=== PATIENT | male | born 1990 | race Caucasian/White ===

== ENCOUNTER 2017-04-27 19:10 | Emergency (ER) | payer MEDICAID ==
[~2017-04-27] VITALS: Ht 170.2 cm; Wt 54.4 kg
[2017-04-27 21:20] VITALS: BP 142/86
[2017-04-27] MEDS ORDERED: cefTRIAXone SOD 1,000 MG VL IM ONE (21:30)
[2017-04-27] MEDS ORDERED: methylPREDNISolone SOD SUCC 125 MG/2 ML VL IM ONE (21:30)
== END 2017-04-27 22:21 | disposition home or self-care (01) ==
LOC: ER 19:15
DX: L03.213 Periorbital cellulitis (principal); F17.210 Nicotine dependence, cigarettes, uncomplicated; F12.90 Cannabis use, unspecified, uncomplicated

== ENCOUNTER 2017-10-03 19:14 | Emergency (ER) | payer MEDICAID ==
[~2017-10-03] VITALS: Ht 177.8 cm; Wt 54.4 kg
[2017-10-03] MEDS ORDERED: NEOMYCIN-BACITRACIN-POLYM UNITDOSE PKG TOP OINT TOP ONE (20:00)
[2017-10-03] MEDS ORDERED: SODIUM CHLORIDE 0.9% 1,000 ML IV ONE (20:00)
[2017-10-03] MEDS ORDERED: ONDANSETRON HCL 4 MG/2 ML VIAL IV ONE (20:00)
[2017-10-03] MEDS ORDERED: MORPHINE SULFATE 4 MG/ML SYR/VIAL IV ONE (20:00)
[2017-10-03 22:40] VITALS: BP 136/77
== END 2017-10-03 22:21 | disposition home or self-care (01) ==
LOC: ER 19:19
DX: T20.26XA Burn of second degree of forehead and cheek, initial encounter (principal); T23.292A Burn of second degree of multiple sites of left wrist and hand, initial encounter; T23.291A Burn of second degree of multiple sites of right wrist and hand, initial encounter; F17.210 Nicotine dependence, cigarettes, uncomplicated; F12.10 Cannabis abuse, uncomplicated; F14.10 Cocaine abuse, uncomplicated; X08.8XXA Exposure to other specified smoke, fire and flames, initial encounter; Y93.89 Activity, other specified; Y92.89 Other specified places as the place of occurrence of the external cause; Y99.8 Other external cause status
CPT/HCPCS: 16020; 71045; 96361; 96374; 96375; 99284; J2270; J2405; J7030

== ENCOUNTER 2019-12-02 08:50 | Emergency (ER) | payer MEDICAID ==
[~2019-12-02] VITALS: Ht 172.7 cm; Wt 54.4 kg
[2019-12-02 08:56] VITALS: BP 146/100
[2019-12-02] MEDS ORDERED: FLUORESCEIN SOD 1 MG TEST STRIP EACHEYE ONE (09:15)
[2019-12-02] MEDS ORDERED: TETRACAINE HCL 0.5% OPTH(EYE) SOLN 4ML EACHEYE ONE (09:15)
== END 2019-12-02 09:55 | disposition home or self-care (01) ==
LOC: ER 08:50
DX: H16.133 Photokeratitis, bilateral (principal); F17.210 Nicotine dependence, cigarettes, uncomplicated

== ENCOUNTER 2022-04-22 04:49 | Emergency (ER) | payer MEDICAID ==
[~2022-04-22] VITALS: Ht 172.7 cm; Wt 55.6 kg
[2022-04-22 05:33] VITALS: BP 184/114
[2022-04-22] MEDS ORDERED: TETRACAINE HCL 0.5% OPTH(EYE) SOLN 4ML EACHEYE ONE (05:45)
== END 2022-04-22 07:09 | disposition left against medical advice (07) ==
LOC: ER 04:49
DX: H57.13 Ocular pain, bilateral (principal); H57.89 Other specified disorders of eye and adnexa; Z53.21 Procedure and treatment not carried out due to patient leaving prior to being seen by health care provider

== ENCOUNTER 2022-05-23 07:07 | Emergency (ER) | payer MEDICAID ==
[~2022-05-23] VITALS: Ht 172.7 cm; Wt 54.0 kg
[2022-05-23] MEDS ORDERED: LIDOCAINE 1% (LOCAL ANESTH.) PF 5ml SDV ID ONE (07:15)
[2022-05-23] MEDS ORDERED: TETANUS-DIPTH-ACEL PERTUSSIS 0.5ML SYR Tdap IM ONE (07:15)
[2022-05-23] MEDS ORDERED: ceFAZolin 1GM/50ML 50 ML IV ONE (07:15)
[2022-05-23] MEDS ORDERED: ACETAMINOPHEN 325 MG TAB PO ONE (07:15)
[2022-05-23 08:10] VITALS: BP 138/93
[2022-05-23 08:10] LABS: Basophils # (auto) 0 10 ^3/uL (0-0.2); Basophils % (auto) 0.2 % (0.0-2.0); Eosinophils # (auto) 0 10 ^3/uL (0-0.8); Hematocrit 37.1 % (41.0-53.0); Hemoglobin 13.1 g/dL (13.5-17.5); Lymphocytes # (auto) 0.6 10 ^3/uL (0.4-5.4); Lymphocytes % (auto) 4.7 % (10.0-50.0); Mean Corpuscular Hemoglobin 32.2 pg (28.0-32.0); Mean Corpuscular Hgb Conc. 35.3 g/dL (32.0-36.0); Mean Corpuscular Volume 91.2 fL (80.0-100.0); Monocytes # (auto) 0.7 10 ^3/uL (0-1.3); Neutrophils # (auto) 12.4 10 ^3/uL (1.6-8.6); Neutrophils % (auto) 90.1 % (37.0-80.0); Red Blood Cells 4.07 10^6/uL (4.5-5.90); Red Cell Distribution Width 12.8 % (11.8-14.3); White Blood Cell 13.7 10^3/uL (4.4-10.8)
[2022-05-23 08:25] LABS: Calcium 8.2 mg/dL (8.5-10.1); Potassium 4.7 mmol/L (3.5-5.1)
[2022-05-23 08:29] LABS: BUN/Creatinine Ratio 13.1; Bilirubin, Total 0.8 mg/dL (0.2-1.0); Partial Thromboplastin Time 24.4 sec (24.6-33.4); Total Protein 7.2 g/dL (6.4-8.2)
== END 2022-05-23 07:57 | disposition short-term general hospital (02) ==
LOC: ER 07:07
DX: S06.300A Unspecified focal traumatic brain injury without loss of consciousness, initial encounter (principal); F17.210 Nicotine dependence, cigarettes, uncomplicated; F12.10 Cannabis abuse, uncomplicated; F14.10 Cocaine abuse, uncomplicated; W22.8XXA Striking against or struck by other objects, initial encounter; Y93.89 Activity, other specified; Y92.89 Other specified places as the place of occurrence of the external cause; Y99.8 Other external cause status
CPT/HCPCS: 36415; 70450; 72125; 80053; 85025; 85610; 85730; 90471; 90715; 96365; 96368; 99285; J0690; J1953; J7060

== ENCOUNTER → 2022-06-08 | Emergency (ER) | payer MEDICAID ==
[~2022-06-08] VITALS: Ht 172.7 cm; Wt 79.5 kg
[2022-06-08 10:58] VITALS: BP 123/89
== END | disposition left against medical advice (07) ==
LOC: EDUNIT# 10:56 → EDBD 10:56 → ER 10:56
DX: T40.411A Poisoning by fentanyl or fentanyl analogs, accidental (unintentional), initial encounter (principal); Z53.21 Procedure and treatment not carried out due to patient leaving prior to being seen by health care provider; Y92.89 Other specified places as the place of occurrence of the external cause

== ENCOUNTER 2023-03-30 18:20 | Emergency (ER) | payer MEDICAID ==
[~2023-03-30] VITALS: Ht 172.7 cm; Wt 54.5 kg
[2023-03-30 18:29] VITALS: BP 117/86; PULSE 86; RESP 18; TEMP 98.3; O2SAT 98
== END 2023-03-30 22:40 | disposition home or self-care (01) ==
LOC: ER 18:20 → EEVIPCON 18:20 → ER 22:40
DX: S22.32XA Fracture of one rib, left side, initial encounter for closed fracture (principal); S01.01XA Laceration without foreign body of scalp, initial encounter; S05.12XA Contusion of eyeball and orbital tissues, left eye, initial encounter; F17.210 Nicotine dependence, cigarettes, uncomplicated; Y04.2XXA Assault by strike against or bumped into by another person, initial encounter; Y93.89 Activity, other specified; Y92.89 Other specified places as the place of occurrence of the external cause; Y99.8 Other external cause status
CPT/HCPCS: 70450; 70486; 71101

== ENCOUNTER 2023-06-14 13:39 | Emergency (ER) | payer MEDICAID, OTHER ==
[~2023-06-14] VITALS: Ht 170.2 cm; Wt 63.6 kg
[2023-06-14 13:59] VITALS: PULSE 68; RESP 16; O2SAT 98
[2023-06-14 16:16] LABS: Basophils # (auto) 0.1 10 ^3/uL (0-0.2); Basophils % (auto) 0.6 % (0.0-2.0); Eosinophils # (auto) 0.1 10 ^3/uL (0-0.8); Eosinophils % (auto) 0.5 % (0.0-7.0); Hematocrit 41.2 % (41.0-53.0); Hemoglobin 14.3 g/dL (13.5-17.5); Lymphocytes # (auto) 1.2 10 ^3/uL (0.4-5.4); Lymphocytes % (auto) 11.1 % (10.0-50.0); Mean Corpuscular Hemoglobin 31.9 pg (28.0-32.0); Mean Corpuscular Hgb Conc. 34.8 g/dL (32.0-36.0); Mean Corpuscular Volume 91.7 fL (80.0-100.0); Monocytes # (auto) 0.6 10 ^3/uL (0-1.3); Monocytes % (auto) 5.6 % (0.0-12.0); Neutrophils # (auto) 8.8 10 ^3/uL (1.6-8.6); Neutrophils % (auto) 82.2 % (37.0-80.0); Red Blood Cells 4.49 10^6/uL (4.5-5.90); Red Cell Distribution Width 14.8 % (11.8-14.3); White Blood Cell 10.7 10^3/uL (4.4-10.8)
[2023-06-14 16:49] LABS: Creatine Kinase IFCC 173 U/L (46-171)
[2023-06-14 16:53] LABS: Alanine Aminotransferase 20 U/L (7-40); Alkaline Phosphatase 75 U/L (46-116); Anion Gap 7 (5-15); Aspartate Aminotransferase 27 U/L (13-40); Bilirubin, Total 0.7 mg/dL (0.2-1.0); Blood Urea Nitrogen 11 mg/dL (9-23); Calcium 9.6 mg/dL (8.5-10.1); Carbon Dioxide 26 mmol/L (20-30); Chloride 108 mmol/L (98-107); Glucose 88 mg/dL (74-106); Potassium 4.1 mmol/L (3.5-5.1); Sodium 141 mmol/L (136-145); Total Protein 7.8 g/dL (5.7-8.2)
[2023-06-14 17:50] VITALS: BP 147/111; PULSE 66; RESP 16; TEMP 97.8; O2SAT 98
== END 2023-06-14 17:58 ==
LOC: ER 13:39 → EDUNIT# 13:39 → ER 17:58
DX: S09.8XXA Other specified injuries of head, initial encounter (principal); F17.210 Nicotine dependence, cigarettes, uncomplicated; W51.XXXA Accidental striking against or bumped into by another person, initial encounter; Y93.89 Activity, other specified; Y92.89 Other specified places as the place of occurrence of the external cause; Y99.8 Other external cause status
CPT/HCPCS: 36415; 70450; 80053; 82550; 84484; 85025

== ENCOUNTER 2024-11-18 14:06 | Inpatient (IN) | payer MEDICAID ==
[2024-11-18] VITALS (21 sets, daily range): BP systolic 114–162; BP diastolic 88–115; PULSE 15–89; RESP 7–20; TEMP 97–99.1; O2SAT 63–100
[~2024-11-18] VITALS: Ht 170.2 cm; Wt 68.8 kg
[2024-11-18] MEDS: ETOMIDATE (2MG/ML) 20ML VIAL IV ONE (14:07)
[2024-11-18] MEDS: SUCCINYLCHOLINE CHLORIDE 20 MG/ML 10ML VIAL IV ONE (14:08)
[2024-11-18] MEDS: MIDAZOLAM DRIP 50 mg/50mL 50 ML IV ONE (14:16)
[2024-11-18] MEDS: MIDAZOLAM DRIP 50 mg/50mL 50 ML IV SCH (14:20)
--- NOTE | 2024-11-18 14:39 | ED.PDOC ---
Altered Mental Status HPI Comments 34-year-old male who comes in with chief complaint of altered mental status after multiple seizures. According to the family, they found the patient face down in the garage. 911 was called and the patient was transported to our facility. When the paramedics arrived, the patient was actually in the house and being held by the family members. We believe that the patient does have a history of seizures. Upon arrival, the patient was barely gasping for air and so the decision was made to intubate the patient immediately. The patient did have an IV Hep-Lock in place on the left upper extremity. It was unknown about the rest of the patient's medical history. According to the paramedics there were some open cans by the patient. Chief Complaint: Seizure Time Seen by MD: 14:09 Primary Care Provider: Unknown Reviewed Notes: Nurses Notes, Director Geophysical Laboratory Notes, Medications, Allergies (No allergies to medications) Allergies: Coded Allergies: NO KNOWN ALLERGIES (Unverified , 06/14/14) Information Source: Emergency Med Personnel Mode of Arrival: EMS Severity: Severe, Unresponsive Timing: Hours Duration: Since onset Prehospital treatment: 12 Lead EKG, Accucheck (157 was the Accu-Chek), Station Engineer Main Line, Other (The patient was on a non-rebreather of oxygen) Quality: Decreased Alertness Recent: None History of: Seizure (Possible history of seizures) Associated Signs and Symptoms: None Past Medical History PAST MEDICAL HISTORY: Seizures Surgical History: Denies all surgeries Family History Family History: Unobtainable Social History Smoker: Cigarettes, Greater Than 1 Pack/Day Alcohol: Occasionally Drugs: Unknown Lives In: Home Unable to Obtain due to: Altered Mental Status, Other (The patient possibly had a seizure) Physical Exam General Appearance: Severe Distress HEENT: Pale Conjuntivae (L), Pale Conjuntivae (R), Pharynx Normal, TMs Normal Neck: Full Range of Motion, Non-Tender, Normal, Normal Inspection Respiratory: Accessory Muscle Use, Chest Non-Tender, Respiratory Distress, Rhonchi Cardiovascular: No Edema, No JVD, No Murmur, No Gallop, Normal Peripheral Pulses, Regular Rate/Rhythm Breast Exam: Deferred Gastrointestinal: No Organomegaly, Non Tender, No Pulsatile Mass, Normal Bowel Sounds, Soft Genitalia: Deferred Pelvic: Deferred Rectal: Deferred Extremities: No calf tenderness, Normal capillary refill, No pedal edema, Other (The patient has an IV Hep-Lock in the left upper extremity) Musculoskeletal : Apperance: Normal 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: Attending Physician Indication: Hypotension, CVP monitoring Room prepared for procedure: Yes Supervisor Fireworks Assembly performed hand hygien: Yes Maximal sterile barrier precau: Mask/Eye shield, Sterile gown, Cap, Sterlie gloves, Large sterlie drape Skin Preparation: Chlorhexidine gluconate Skin preparation completely dr: Yes Insertion site: Right, Infraclavicular Central line catheter type: [id number] dialysis Number of lumens: 3 Central line exchanged over a: No Antiseptic ointment applied to: Yes Post Assessment: Chest X-Ray, Proper placement, No Pneumothorax Informed consent obtained: No Risks/benefits/alt described: No Intubation Indication: Respiratory Insufficiency, Altered Mental Status Prep: Preoxygenation Pretreated with: Sedation (Etomidate 20 mg IV push) Medicated with: Succinylcholine (80 mg IV push) Intubation Approach: Orotracheal (8.0) Intubation size: cm (8.0) Informed consent obtained: No Risks/benefits/alt described: No Differential Diagnosis (ALOC) Differential Diagnosis: Dehydration, DKA, Seizure, CVA, Drug Overdose, ETOH Intoxication X-Ray, Labs, Meds, VS Vital Signs Date Time Temp Pulse Resp B/P (MAP) Pulse Ox O2 Delivery O2 Flow Rate FiO2 11/18/24 14:29 89 11/18/24 14:09 112 12 101/69 (80) 92 Lab Test 11/18/24 14:56 11/18/24 14:35 11/18/24 14:22 Range/Units POC Glucose 184 H 70-106 mg/dl White Blood Count 6.2 4.4-10.8 10^3/uL Red Blood Count 4.24 L 4.5-5.90 10^6/uL Hemoglobin 14.4 13.5-17.5 g/dL Hematocrit 42.4 41.0-53.0 % Mean Corpuscular Volume 99.9 80.0-100.0 fL Mean Corpuscular Hemoglobin 33.9 H 28.0-32.0 pg Mean Corpuscular Hemoglobin Concent 34.0 32.0-36.0 g/dL Red Cell Distribution Width 13.5 11.8-14.3 % Platelet Count 135 L 140-450 10^3/uL Mean Platelet Volume 9.6 6.9-10.8 fL Neutrophils (%) (Auto) 55.9 37.0-80.0 % Lymphocytes (%) (Auto) 35.2 10.0-50.0 % Monocytes (%) (Auto) 5.6 0.0-12.0 % Eosinophils (%) (Auto) 1.9 0.0-7.0 % Basophils (%) (Auto) 1.4 0.0-2.0 % Neutrophils # (Auto) 3.5 1.6-8.6 10 ^3/uL Lymphocytes # (Auto) 2.2 0.4-5.4 10 ^3/uL Monocytes # (Auto) 0.3 0-1.3 10 ^3/uL Eosinophils # (Auto) 0.1 0-0.8 10 ^3/uL Basophils # (Auto) 0.1 0-0.2 10 ^3/uL Nucleated Red Blood Cells 0.1 % Sodium Level 140 136-145 mmol/L Potassium Level 3.6 3.5-5.1 mmol/L Chloride Level 105 98-107 mmol/L Carbon Dioxide Level 18 L 20-31 mmol/L Anion Gap 17 H 5-15 Blood Urea Nitrogen 8 L 9-23 mg/dL Creatinine 1.41 H 0.700-1.30 mg/dL Glomerular Filtration Rate Calc 67 >90 mL/min BUN/Creatinine Ratio 5.7 L 10.0-20.0 Serum Glucose 192 H 74-106 mg/dL Calcium Level 9.0 8.7-10.4 mg/dL Total Bilirubin 0.6 0.2-1.0 mg/dL Aspartate Amino Transferase (AST) 44 H 13-40 U/L Alanine Aminotransferase (ALT) 81 H 7-40 U/L Alkaline Phosphatase 48 46-116 U/L Total Protein 7.3 5.7-8.2 g/dL Albumin 4.6 3.2-4.8 g/dL Plasma/Serum Blood Alcohol 3.1 <10 mg/dL Urine Color Colorless Yellow Urine Clarity Clear Clear Urine pH 7.0 5.0-9.0 Urine Specific [place] 1.008 1.001-1.035 Urine Protein Trace H Negative Urine Ketones Negative Negative Urine Blood Negative Negative /uL Urine Nitrite Negative Negative Urine Bilirubin Negative Negative Urine Urobilinogen Normal Negative mg/dL Urine Leukocyte Esterase Negative Negative /uL Urine RBC 1 0 - 3 /hpf Urine Microscopic WBC 1 0-3 /HPF Urine Squamous Epithelial Cells Few <5 /hpf Urine Bacteria None seen None Seen /hpf Urine Hyaline Casts Few 0 - 2 /lpf Urine Glucose Normal Normal mg/dL Urine Opiates Screen Neg NEGATIVE Urine Fentanyl Screen Neg NEGATIVE Urine Barbiturates Screen Neg NEGATIVE Urine Phencyclidine Screen Neg NEGATIVE Urine Amphetamines Screen Neg NEGATIVE Urine Benzodiazepines Screen Neg NEGATIVE Urine Cocaine Screen Neg NEGATIVE Urine Cannabinoids Screen Pos NEGATIVE The patient's CBC is within normal limits. The Accu-Chek was 183 The urine tox is positive for marijuana but otherwise negative The urine test is negative for any infection The alcohol level is 3.1 And did have multiple seizures so we are concerned about status epilepticus. An ABG has been ordered. The chest x-ray initially done showed no sign of any abnormalities The repeat chest x-ray now shows the endotracheal tube in place as well as the central line in place and no sign of any pneumothorax Critical Care was done for this patient is secondary to bedside management as well as interpretation of labs and imaging A pulmonary consult will be obtained. A neurology consult will most likely be obtained. The patient was given Keppra 1 g IV piggyback The patient tolerated the central line placement without any difficulty The patient initially was being sedated with a Versed but because of the patient's increased movement we did have to add propofol. We are going to continue to manage the patient's blood pressure as to being on both Versed and propofol The patient will be admitted to the ICU Images Reviewed?: Images reviewed and evaluated by me Time of 1ST Reevaluation: 14:39 Reevaluation 1ST: Unchanged Patient Education/Counseling: Pt Unresponsive Family Education/Counseling: No Family Present Departure 1 Departure Time of Disposition: 15:34 Impression: Primary Impression: Status epilepticus Additional Impressions: Acute respiratory failure Qualified Codes: J96.01 - Acute respiratory failure with hypoxia Marijuana use Disposition: 09 ADMITTED INPATIENT Admit to: ICU Condition: Critical Critical Care Note Critical Care Time?: Yes (55 min-critical care time only) Stability Stability form required: Yes Unstable for transfer: ICU, CCU, PCU, BISHNU (Intensive VS monitoring), ED Physician Assesment (Clinical assesment) Heart Score Heart Score: Heart Score Response (Comments) Value History N/A 0 EKG N/A 0 Age N/A 0 Risk Factors N/A 0 Troponin N/A 0 Total 0 RENE PLEITEZ MD Nov 18, 2024 14:39
[2024-11-18 14:40] LABS: Urine Bacteria None Seen /hpf (None Seen)
--- NOTE | 2024-11-18 14:47 | DVH ---
CHEST RADIOGRAPH Indication: POST INTUBATION Technique: Single frontal view of the chest was obtained COMPARISON: None FINDINGS: Lines and Tubes: Endotracheal tube and enteric catheter in satisfactory position Lungs: Clear Pleura: No effusion. No pneumothorax. Cardiomediastinal contours: Unremarkable Bones: Unremarkable IMPRESSION: Endotracheal tube and enteric catheter in satisfactory position
[2024-11-18 14:55] LABS: Basophils # (auto) 0.1 10 ^3/uL (0-0.2); Basophils % (auto) 1.4 % (0.0-2.0); Eosinophils # (auto) 0.1 10 ^3/uL (0-0.8); Eosinophils % (auto) 1.9 % (0.0-7.0); Hematocrit 42.4 % (41.0-53.0); Hemoglobin 14.4 g/dL (13.5-17.5); Lymphocytes # (auto) 2.2 10 ^3/uL (0.4-5.4); Lymphocytes % (auto) 35.2 % (10.0-50.0); Mean Corpuscular Hemoglobin 33.9 pg (28.0-32.0); Mean Corpuscular Volume 99.9 fL (80.0-100.0); Monocytes # (auto) 0.3 10 ^3/uL (0-1.3); Monocytes % (auto) 5.6 % (0.0-12.0); Neutrophils # (auto) 3.5 10 ^3/uL (1.6-8.6); Neutrophils % (auto) 55.9 % (37.0-80.0); Nucleated Red Blood Cells % 0.1 %; Platelet Count (auto) 135 10^3/uL (140-450); Red Blood Cells 4.24 10^6/uL (4.5-5.90); Red Cell Distribution Width 13.5 % (11.8-14.3); White Blood Cell 6.2 10^3/uL (4.4-10.8)
[2024-11-18 15:04] LABS: Urine Blood Negative /uL (Negative); Urine Clarity Clear (Clear); Urine Color Colorless (Yellow); Urine Hyaline Cast FEW /lpf (0 - 2); Urine Protein, UAD TRACE (Negative); Urine Specific Gravity 1.008 (1.001-1.035); Urine Squamous Epithelial Cell FEW /hpf (<5); Urine Urobilinogen Normal (Negative); Urine WBC 1 /HPF (0-3)
[2024-11-18 15:10] LABS: Benzodiazephine Screen, Urine Neg (NEGATIVE)
[2024-11-18 15:11] LABS: Albumin 4.6 g/dL (3.2-4.8); Alkaline Phosphatase 48 U/L (46-116); Anion Gap 17 (5-15); BUN/Creatinine Ratio 5.7 (10.0-20.0); Blood Alcohol 3.1 mg/dL (<10); Chloride 105 mmol/L (98-107); Potassium 3.6 mmol/L (3.5-5.1); Sodium 140 mmol/L (136-145); Total Protein 7.3 g/dL (5.7-8.2)
[2024-11-18 15:11] LABS: Amphetamine Screen, Urine Neg (NEGATIVE); Barbiturate Scree,Urine Neg (NEGATIVE); Cannabinoid Screen, Urine Pos (NEGATIVE); Cocaine Screen, Urine Neg (NEGATIVE); Opiate Scree,Urine Neg (NEGATIVE); Phencyclidine Screen, Urine Neg (NEGATIVE)
[2024-11-18 15:12] LABS: Alanine Aminotransferase 81 U/L (7-40); Aspartate Aminotransferase 44 U/L (13-40); Bilirubin, Total 0.6 mg/dL (0.2-1.0); Blood Urea Nitrogen 8 mg/dL (9-23); Carbon Dioxide 18 mmol/L (20-31); Glucose 192 mg/dL (74-106)
--- NOTE | 2024-11-18 15:21 | DVH ---
EXAM: CT HEAD WITHOUT CONTRAST INDICATION: aloc TECHNIQUE: CT of the head without intravenous contrast. Radiation Dose Information: CT Dose: CTDI volume is 61.31 mGy. Dose-length product is 1208.16 mGy*cm The dose indicators for CT are the volume Computed Tomography (CT) Dose Index (CTDIvol) and the Dose Length Product (DLP), and are measured in units of mGy and mGy-cm, respectively. These indicators are not patient dose, but values generated from the CT scanner acquisition factors. The report includes radiation exposure data for exposures received during this examination. COMPARISON: CT HEAD WITHOUT CONTRAST on DOS: 03/30/23, HEAD WITHOUT CONTRAST on DOS: 05/23/22 FINDINGS: There is no evidence of acute intracranial hemorrhage, extra-axial collection, mass effect, midline s hift, herniation or hydrocephalus. The ventricles, sulci and cisterns are age appropriate. The wise-white differentiation is intact. Patchy periventricular and subcortical white matter hypoattenuation is nonspecific but may be related to small vessel ischemic disease. The visualized paranasal sinuses and mastoid air cells are clear. Right frontal craniotomy. IMPRESSION: No acute intracranial abnormality.
[2024-11-18] MEDS: PROPOFOL 100 ML IV ONE (15:28)
[2024-11-18] MEDS: PROPOFOL 100 ML IV SCH (15:30)
[2024-11-18] MEDS: SODIUM CHLORIDE 0.9% 500 ML IVB ONE (15:31)
[2024-11-18] MEDS: levETIRAcetam 1000 mg/100ml 100 ML IV ONE (15:31)
--- NOTE | 2024-11-18 15:47 | DVH ---
CHEST RADIOGRAPH Indication: s/p central line placement. Technique: Single frontal view of the chest was obtained COMPARISON: XY CHEST XRAY 1 VIEW on DOS: 11/18/24 FINDINGS: Lines and Tubes: Endotracheal tube and enteric catheter in satisfactory position. Right central veno us catheter in satisfactory position. Lungs: Clear Pleura: No effusion. No pneumothorax. Cardiomediastinal contours: Unremarkable Bones: Unremarkable IMPRESSION: No acute disease.
[2024-11-18 16:13] LABS: Base Excess -2.3 mmol/L (-2.0-3.0)
[2024-11-18] MEDS ORDERED: RISP3TAB44 PO (16:57)
[2024-11-18] MEDS ORDERED: LEVE750T3 PO (16:57)
[2024-11-18] MEDS ORDERED: NITROGLYCERIN 0.4 MG SL TAB SL PRN (17:00)
[2024-11-18] MEDS ORDERED: MORPHINE SULFATE INJ 2 MG/ml SYRG IV PRN (17:00)
[2024-11-18] MEDS ORDERED: ACETAMINOPHEN 325 MG TAB PO PRN (17:00)
[2024-11-18] MEDS ORDERED: ONDANSETRON HCL 4 MG/2 ML VIAL IV PRN (17:00)
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
[2024-11-18] MEDS: SODIUM CHLORIDE 0.9% 1,000 ML IV SCH (17:30)
[2024-11-18] MEDS: SODIUM CHLORIDE 0.9% 1,000 ML IV ONE (17:30)
--- NOTE | 2024-11-18 20:25 | DVHINCON2 ---
Date of service: Nov 18, 2024 Referring Physician Rafael Reason for Consultation 11/18/24 Altered Mental Status HPI Comments 34-year-old male who comes in with chief complaint of altered mental status after multiple seizures. According to the family, they found the patient face down in the garage. 911 was called and the patient was transported to our facility. When the paramedics arrived, the patient was actually in the house and being held by the family members. We believe that the patient does have a history of seizures. Upon arrival, the patient was barely gasping for air and so the decision was made to intubate the patient immediately. The patient did have an IV Hep-Lock in place on the left upper extremity. It was unknown about the rest of the patient's medical history. According to the paramedics there were some open cans by the patient. Chief Complaint: Seizure Urinalysis, 11/18/2024: Unremarkable UDS, 11/18/2024: Cannabinoids Plasma alcohol, 11/18/2024: <3 WBC/HB/PLT/MCV 11/18/24: 6.2/14.4/135/99.9 HCO3, 11/18/2024: 18 Anion gap, 11/18/2024: 17 BUN/CR, 11/18/2024: 8/1.41 HGB A1c, 11/18/24: 4.7 TBI/AST/ALT/AP, 11/18/2024: 0.6/44/81/48 Chest x-ray, 11/18/2024: No acute disease CT head, 11/18/2024: No acute intracranial abnormality Seizures Craniotomy Unobtainable Smoker: Cigarettes, Greater Than 1 Pack/Day Alcohol: Occasionally Drugs: Unknown Lives In: Home History of Present Illness Mr. Laws is a 34 years old right-handed gentleman with a history of traumatic brain injury, schizophrenia, he was brought to the [facility] on 11/17/2024 with a chief company of seizure activity. At this time, he is intubated, nonresponsive to strong painful stimuli, the history is obtained from his mother, I have also talked to his nurse and reviewed the chart He was history of seizure disorder and traumatic brain injury, that will be further described On 11/17/2024, the patient was had multiple episodic event in the role in that he was shaking all over the body, with eyes round back, company nonresponsive, the even lasts for about 1 minute, and followed by another one without recovered mental status One day in 04/2022, the patient was found unresponsiveness with a hammer on his head, the patient recovered after craniotomy, and he reports to the family that he hammertoes his head himself. Coincidentally after this event, the patient was started have seizure disorder, and the events happened on 11/17/2024 were typical to his seizure activity One day in 12/2022, he shot he was evaluated head, and he recovered after brain surgery. He had a good recovery from both brain injury, with normal mentation and memory But he was seizure activity once or twice every [address] Sita Horton, a local neurologist, he was on Keppra 1500 mg b.i.d. Urinalysis, 11/18/2024: Unremarkable UDS, 11/18/2024: Cannabinoids Plasma alcohol, 11/18/2024: <3 WBC/HB/PLT/MCV 11/18/24: 6.2/14.4/135/99.9 HCO3, 11/18/2024: 18 Anion gap, 11/18/2024: 17 BUN/CR, 11/18/2024: 8/1.41 HGB A1c, 11/18/24: 4.7 TBI/AST/ALT/AP, 11/18/2024: 0.6/44/81/48 Chest x-ray, 11/18/2024: No acute disease CT head, 11/18/2024: No acute intracranial abnormality Past Medical History Seizures, schizophrenia Past Surgical History Craniotomy Family History No major medical problems Social History He smokes, but no history of alcohol or recreational substance use Allergies: Coded Allergies: NO KNOWN ALLERGIES (Unverified , 06/14/14) Home Meds Reported Medications Risperidone (Risperidone) 3 Mg Tab, 1 TAB PO DAILY 11/18/24 Levetiracetam (Levetiracetam) 750 Mg Tab, 2 TAB PO BID 11/18/24 Current Medications Current Medications Medications (Trade) Dose Ordered Sig/Milton Route PRN Reason Start Time Stop Time Status Last Admin Midazolam HCl 50 ml @ 1 mls/hr Q24H IV 11/18/24 14:20 11/18/24 14:20 Propofol 100 ml @ 2.52 mls/hr Q24H IV 11/18/24 15:45 11/18/24 15:30 Ondansetron HCl (Zofran) 4 mg Q4HP PRN IV NAUSEA / VOMITING 11/18/24 17:00 Acetaminophen (Tylenol Tablet) 650 mg Q6HP PRN PO PAIN SCALE 1-3 OR TEMP>100.4 11/18/24 17:00 Nitroglycerin (Ntrostat Sublingual) 0.4 mg Q5MINP PRN SL FOR CHEST PAIN 11/18/24 17:00 Morphine Sulfate 2 mg Q30M PRN IV FOR CHEST PAIN 11/18/24 17:00 Levetiracetam 100 ml @ 400 mls/hr BID IV 11/18/24 22:00 Risperidone (RisperDAL TABLET) 3 mg DAILY PO 11/19/24 10:00 Sodium Chloride 1,000 ml @ 125 mls/hr Q8H IV 11/18/24 17:30 11/18/24 17:30 Review of Systems As above, the other systems are negative Vital Signs Vital Signs Date Time Temp Pulse Resp B/P (MAP) Pulse Ox O2 Delivery O2 Flow Rate FiO2 11/18/24 19:48 99.1 63 14 161/114 (130) 98 99.1 11/18/24 18:00 40 11/18/24 14:25 Mechanical Ventilator+ Physical Exam The patient is well-nourished and well-developed with no distress. The patient is intubated HEENT: Status post craniotomy c, neck supple, no carotid bruits Lungs: Clear to auscultation Cardiovascular: Regular rate and region, S1, S2, no murmurs Abdomen: Soft, nontender, normal bowel sounds MENTAL STATUS: Not responsive to the surroundings, CRANIAL NERVES: Pupils are equal, round and reactive.There are corneal reflexes and doll's eyes phenomenon. No signs of facial weakness. There are gagging or coughing reflexes SENSATION: No responses to pain stimuli. MOTOR: Normal tone in the upper and lower extremity. Normal muscle bulk. No fasciculations. No spontaneous movement. REFLEXES: Deep tendon reflexes are symmetrical. No pathological reflexes. CEREBELLAR/COORDINATION: Deferred GAIT/STATION: deferred. Labs/Diagnostic Data Labs Test 11/18/24 16:07 11/18/24 14:56 11/18/24 14:35 11/18/24 14:22 Range/Units Blood Gas Specimen Type Arterial Blood Gas Sample Site Right radial Blood Gas Patient Temperature 37.0 Arterial Blood Date Drawn [id number] Arterial Blood pH 7.396 7.350-7.450 Arterial Blood Partial Pressure CO2 36.8 35.0-48.0 mmHg Arterial Blood Partial Pressure O2 202.3 H 83.0-108.0 mmHg Arterial Blood HCO3 22.1 21.0-28.0 mmol/L Arterial Blood Oxygen Saturation 99.1 H 94.0-98.0 % Arterial Blood Base Excess -2.3 L -2.0-3.0 mmol/L Arterial Blood Oxyhemoglobin 97.9 94.0-98.0 % Arterial Blood Carboxyhemoglobin 0.7 0.5-1.5 % Arterial Blood Methemoglobin 0.5 0.0-1.5 % Rigoberto Test Modified Blood Gas Total Hemoglobin 14.30 13.5-17.5 g/dL Blood Gas Set Respiration Rate 14.0 Blood Gas Modality Vent - ac FiO2 % 100.0 Blood Gas Tidal Volume 500.0 Blood Gas PEEP or CPAP 8.0 POC Glucose 184 H 70-106 mg/dl White Blood Count 6.2 4.4-10.8 10^3/uL Red Blood Count 4.24 L 4.5-5.90 10^6/uL Hemoglobin 14.4 13.5-17.5 g/dL Hematocrit 42.4 41.0-53.0 % Mean Corpuscular Volume 99.9 80.0-100.0 fL Mean Corpuscular Hemoglobin 33.9 H 28.0-32.0 pg Mean Corpuscular Hemoglobin Concent 34.0 32.0-36.0 g/dL Red Cell Distribution Width 13.5 11.8-14.3 % Platelet Count 135 L 140-450 10^3/uL Mean Platelet Volume 9.6 6.9-10.8 fL Neutrophils (%) (Auto) 55.9 37.0-80.0 % Lymphocytes (%) (Auto) 35.2 10.0-50.0 % Monocytes (%) (Auto) 5.6 0.0-12.0 % Eosinophils (%) (Auto) 1.9 0.0-7.0 % Basophils (%) (Auto) 1.4 0.0-2.0 % Neutrophils # (Auto) 3.5 1.6-8.6 10 ^3/uL Lymphocytes # (Auto) 2.2 0.4-5.4 10 ^3/uL Monocytes # (Auto) 0.3 0-1.3 10 ^3/uL Eosinophils # (Auto) 0.1 0-0.8 10 ^3/uL Basophils # (Auto) 0.1 0-0.2 10 ^3/uL Nucleated Red Blood Cells 0.1 % Sodium Level 140 136-145 mmol/L Potassium Level 3.6 3.5-5.1 mmol/L Chloride Level 105 98-107 mmol/L Carbon Dioxide Level 18 L 20-31 mmol/L Anion Gap 17 H 5-15 Blood Urea Nitrogen 8 L 9-23 mg/dL Creatinine 1.41 H 0.700-1.30 mg/dL Glomerular Filtration Rate Calc 67 >90 mL/min BUN/Creatinine Ratio 5.7 L 10.0-20.0 Serum Glucose 192 H 74-106 mg/dL Hemoglobin A1c 4.7 <5.7 % A1C Calcium Level 9.0 8.7-10.4 mg/dL Total Bilirubin 0.6 0.2-1.0 mg/dL Aspartate Amino Transferase (AST) 44 H 13-40 U/L Alanine Aminotransferase (ALT) 81 H 7-40 U/L Alkaline Phosphatase 48 46-116 U/L Total Protein 7.3 5.7-8.2 g/dL Albumin 4.6 3.2-4.8 g/dL Plasma/Serum Blood Alcohol 3.1 <10 mg/dL Urine Color Colorless Yellow Urine Clarity Clear Clear Urine pH 7.0 5.0-9.0 Urine Specific [place] 1.008 1.001-1.035 Urine Protein Trace H Negative Urine Ketones Negative Negative Urine Blood Negative Negative /uL Urine Nitrite Negative Negative Urine Bilirubin Negative Negative Urine Urobilinogen Normal Negative mg/dL Urine Leukocyte Esterase Negative Negative /uL Urine RBC 1 0 - 3 /hpf Urine Microscopic WBC 1 0-3 /HPF Urine Squamous Epithelial Cells Few <5 /hpf Urine Bacteria None seen None Seen /hpf Urine Hyaline Casts Few 0 - 2 /lpf Urine Glucose Normal Normal mg/dL Urine Opiates Screen Neg NEGATIVE Urine Fentanyl Screen Neg NEGATIVE Urine Barbiturates Screen Neg NEGATIVE Urine Phencyclidine Screen Neg NEGATIVE Urine Amphetamines Screen Neg NEGATIVE Urine Benzodiazepines Screen Neg NEGATIVE Urine Cocaine Screen Neg NEGATIVE Urine Cannabinoids Screen Pos NEGATIVE Assessment Status epileptics Grand mal seizure Chronic traumatic brain injury Acute respiratory failure Plan/Recommendation Close monitoring Supportive treatment EEG ICU care Stabilize Vital Respiratory support/vent management Keppra 1500 mg IV b.i.d. Ativan for seizure breakthrough DVT prophylaxis/Lovenox More recommendation per clinical course Progress: Poor This medical document was created using an electronic medical record system with [employer] dictation system. Although this document has been carefully reviewed, there may still be some phonetic and typographical errors. These areas are purely typographical due to imperfections of the software programs, and do not reflect any compromise in the patient's medical care. Plan discussed with: Other ANTELMO MONTANA MD Nov 18, 2024 20:25
[2024-11-18] MEDS ORDERED: LORazepam 2MG/ML-1ML VIAL IV PRN (22:00)
[2024-11-18] MEDS: ENOXAPARIN SOD 40 MG/0.4 ML SYRINGE SC ONE (22:27)
[2024-11-18] MEDS: levETIRAcetam 1500 mg/100ml 100 ML IV SCH (22:28)
[2024-11-19] VITALS (114 sets, daily range): BP systolic 75–154; BP diastolic 39–109; PULSE 41–83; RESP 12–18; TEMP 96.3–99.5; O2SAT 91–100
[2024-11-19 05:13] LABS: Basophils # (auto) 0.1 10 ^3/uL (0-0.2); Basophils % (auto) 0.9 % (0.0-2.0); Eosinophils # (auto) 0.1 10 ^3/uL (0-0.8); Hemoglobin 13.6 g/dL (13.5-17.5); Platelet Count (auto) 137 10^3/uL (140-450)
[2024-11-19 05:17] LABS: Eosinophils % (auto) 1.4 % (0.0-7.0); Hematocrit 38.4 % (41.0-53.0); Lymphocytes # (auto) 2.3 10 ^3/uL (0.4-5.4); Lymphocytes % (auto) 26.5 % (10.0-50.0); Mean Corpuscular Hemoglobin 34.2 pg (28.0-32.0); Mean Corpuscular Hgb Conc. 35.5 g/dL (32.0-36.0); Mean Corpuscular Volume 96.5 fL (80.0-100.0); Monocytes # (auto) 0.6 10 ^3/uL (0-1.3); Monocytes % (auto) 6.6 % (0.0-12.0); Neutrophils # (auto) 5.5 10 ^3/uL (1.6-8.6); Neutrophils % (auto) 64.6 % (37.0-80.0); Nucleated Red Blood Cells % 0.2 %; Red Blood Cells 3.98 10^6/uL (4.5-5.90); Red Cell Distribution Width 13.5 % (11.8-14.3); White Blood Cell 8.5 10^3/uL (4.4-10.8)
[2024-11-19 05:24] LABS: Albumin 4.1 g/dL (3.2-4.8); Anion Gap 9 (5-15); Aspartate Aminotransferase 31 U/L (13-40); BUN/Creatinine Ratio 6.3 (10.0-20.0); Carbon Dioxide 25 mmol/L (20-31); Glucose 88 mg/dL (74-106); Total Protein 6.5 g/dL (5.7-8.2)
[2024-11-19 05:25] LABS: Bilirubin, Total 0.5 mg/dL (0.2-1.0)
[2024-11-19 05:34] LABS: Alanine Aminotransferase 63 U/L (7-40); Alkaline Phosphatase 43 U/L (46-116); Blood Urea Nitrogen 6 mg/dL (9-23); Calcium 8.6 mg/dL (8.7-10.4); Chloride 112 mmol/L (98-107); Potassium 3.1 mmol/L (3.5-5.1); Sodium 146 mmol/L (136-145)
[2024-11-19] MEDS: SODIUM CHLORIDE 0.9% 1,000 ML IV SCH (07:15)
[2024-11-19] MEDS: POTASSIUM CHLORIDE 40 MEQ, LIDOCAINE 1% (LOCAL ANESTH.) 4 ML in SODIUM CHL 0.9% 250 ML IV ONE (07:15)
[2024-11-19 07:27] LABS: Base Excess 1.5 mmol/L (-2.0-3.0)
[2024-11-19] MEDS: fentaNYL Drip 2500mCg/250mlNS 250 ML IV SCH (08:30)
--- NOTE | 2024-11-19 08:36 | DVH ---
EXAM: CT HEAD WITHOUT CONTRAST HISTORY: Status epilepticus COMPARISON: CT HEAD WITHOUT CONTRAST on DOS: 11/18/24, CT HEAD WITHOUT CONTRAST on DOS: 03/30/23 TECHNIQUE: Axial images of the head were obtained and reformatted in coronal and sagittal planes. All CT scans at this medical facility are performed using dose modulation techniques as appropriate t o a performed exam including the following: Automated exposure control was utilized; adjustment of th e MA and/or KV according to patient size; and use of iterative reconstruction technique. CT Dose: CTDI volume is 65.94 mGy. Dose-length product is 1299.24 mGy*cm FINDINGS: There are stable postsurgical changes with right frontal craniotomy and hypodense changes in the unde rlying right frontal lobe. There is mild overlying right frontal scalp soft tissue swelling and alistair bhavesh. There is no evidence of acute intracranial hemorrhage, mass, mass effect midline shift. There is no h ydrocephalus or extra-axial fluid collection. The visualized paranasal sinuses and mastoid air cells are clear. The calvarium is intact. IMPRESSION: 1. No acute intracranial process. 2. Stable appearing postsurgical changes. HS:Y
[2024-11-19] MEDS: risperiDONE 1 MG TAB PO SCH (09:21)
--- NOTE | 2024-11-19 09:31 | DVHPN2 ---
Progress Note - Dictate Date Seen: Nov 19, 2024 Medical Necessity Reason Pt with a Central, PICC or Fol: Yes The following are medically ne: Central Line, Crabtree Catheter Subjective Mr. Laws is a 34 years old right-handed gentleman with a history of traumatic brain injury, schizophrenia, he was brought to the [facility] on 11/17/2024 with a chief company of seizure activity. I have seen and examined the patient, discussed with his nurse, and other medical staff, he was intubated, sedated, nonresponsive to painful stimuli, no seizure activity overnight He is on warming blanket for hypothermia Urinalysis, 11/18/2024: Unremarkable UDS, 11/18/2024: Cannabinoids Plasma alcohol, 11/18/2024: <3 WBC/HB/PLT/MCV 11/18/24: 6.2/14.4/135/99.9 HCO3, 11/18/2024: 18 Anion gap, 11/18/2024: 17 BUN/CR, 11/18/2024: 8/1.41 HGB A1c, 11/18/24: 4.7 TBI/AST/ALT/AP, 11/18/2024: 0.6/44/81/48 Chest x-ray, 11/18/2024: No acute disease CT head, 11/18/2024: No acute intracranial abnormality vital signs Vital Sign Date Time Temp Pulse Resp B/P (MAP) Pulse Ox O2 Delivery O2 Flow Rate FiO2 11/19/24 07:27 58 14 111/78 (89) 97 30 11/19/24 06:45 97.2 207.0 11/19/24 05:45 Mechanical Ventilator+ Total Intake and Output 11/18/24 11/18/24 11/19/24 15:00 23:00 07:00 Intake Total 750.72 ml 1136.36 ml Output Total 1750 ml Balance 750.72 ml -613.64 ml medications Current Medications Medications Dose Ordered Sig/Milton Route Start Time Stop Time Status Last Admin Dose Admin Midazolam HCl 50 ml @ 1 mls/hr Q24H IV 11/18/24 14:20 11/19/24 05:29 15 MLS/HR Propofol 100 ml @ 2.52 mls/hr Q24H IV 11/18/24 15:45 11/19/24 03:35 25.2 MLS/HR Levetiracetam 100 ml @ 400 mls/hr BID IV 11/18/24 22:00 11/18/24 22:28 400 MLS/HR Risperidone 3 mg DAILY PO 11/19/24 10:00 Lorazepam 1 mg Q5MINP PRN IV 11/18/24 22:00 Enoxaparin Sodium 40 mg Q24H SC 11/19/24 21:00 Sodium Chloride 1,000 ml @ 75 mls/hr [id number] IV 11/19/24 07:15 11/19/24 07:15 75 MLS/HR Pantoprazole Sodium 40 mg DAILY IV 11/19/24 10:00 Fentanyl Citrate 250 ml @ 2.5 mls/hr Q24H IV 11/19/24 08:30 objective The patient is well-nourished and well-developed with no distress. The patient is intubated MENTAL STATUS: Subjective CRANIAL NERVES: Pupils are equal, round and reactive.There are corneal reflexes and doll's eyes phenomenon. No signs of facial weakness. There are gagging or coughing reflexes SENSATION: No responses to pain stimuli. MOTOR: Normal tone in the upper and lower extremity. Normal muscle bulk. No fasciculations. No spontaneous movement. REFLEXES: Deep tendon reflexes are symmetrical. No pathological reflexes. CEREBELLAR/COORDINATION: Deferred GAIT/STATION: deferred laboratory and microbiology Laboratory Tests 11/19/24 04:40 Test 11/19/24 04:40 Range/Units Serum Glucose 88 # 74-106 mg/dL Problem List Status epileptics Grand mal seizure Chronic traumatic brain injury Acute respiratory failure Assessment/Plan Close monitoring Supportive treatment EEG ICU care Stabilize Vital Respiratory support/vent management Keppra 1500 mg IV b.i.d. Ativan for seizure breakthrough DVT prophylaxis/Lovenox More recommendation per clinical course This medical document was created using an electronic medical record system with [employer] dictation system. Although this document has been carefully reviewed, there may still be some phonetic and typographical errors. These areas are purely typographical due to imperfections of the software programs, and do not reflect any compromise in the patient's medical care Prognosis guarded Plan discussed with: Other Critical Care Time(min): 35 ANTELMO MONTANA MD Nov 19, 2024 09:31
--- NOTE | 2024-11-19 09:45 | DVH ---
EXAM: XY CHEST PORTABLE Indication: sob Technique: Single frontal view of the chest was obtained Comparison: XY CHEST PORTABLE on DOS: 11/18/24, XY CHEST XRAY 1 VIEW on DOS: 11/18/24 FINDINGS: Lines and Tubes: Endotracheal tube, enteric tube and right central venous catheter tip projects over the cavoatrial junction. Lungs: No focal consolidation. Pleura: No effusion. No pneumothorax. Cardiomediastinal contours: Unremarkable Bones: No acute osseous abnormality. IMPRESSION: Lines and tubes in appropriate position. No acute cardiopulmonary disease.
[2024-11-19 09:49] LABS: Base Excess 1.5 mmol/L (-2.0-3.0)
[2024-11-19] MEDS: PANTOPRAZOLE 40 MG/10 ML VIAL INJ IV SCH (10:05)
--- NOTE | 2024-11-19 10:58 | DVHPN2 ---
Subjective Patient intubated and sedated Reviewed: Care Plan, H&P, Labs, Medications Changes from previous H/P or p: No Changes General: Per HPI Eyes: No Pain, No Vision change, No Conjunctivae inflammation, No Eyelid inflammation, No Other, No Redness ENT: No Ear pain, No Ear discharge, No Nose pain, No Nose discharge, No Nose congestion, No Mouth pain, No Mouth swelling, No Throat pain, No Throat swelling, No Other Cardiovascular: No Chest Pain, No Palpitations, No Orthopnea, No Paroxysmal Noc. Dyspnea, No Edema, No Lt Headedness, No Other Respiratory: No Cough, No Dry, No Shortness of breath, No SOB with excertion, No Wheezing, No Hemoptysis, No Pleuritic Pain, No Sputum, No Other Gastrointestinal: No Nausea, No Vomiting, No Abdominal Pain, No Diarrhea, No Constipation, No Melena, No Hematochezia, No Other Genitourinary: No Dysuria, No Frequency, No Incontinence, No Hematuria, No Retention, No Other Musculoskeletal: No other, No neck pain, No shoulder pain, No arm pain, No back pain, No hand pain, No leg pain, No foot pain Skin: No Rash, No Lesions, No Jaundice, No Bruising, No Other Objective Vitals Vital Signs Date Time Temp Pulse Resp B/P (MAP) Pulse Ox O2 Delivery O2 Flow Rate FiO2 11/19/24 10:38 117/83 11/19/24 09:31 59 14 99 30 11/19/24 06:45 97.2 207.0 11/19/24 05:45 Mechanical Ventilator+ Intake/Output Intake and Output 11/19/24 07:00 Intake Total 1887.08 ml Output Total 1750 ml Balance 137.08 ml Intake IV Total 1887.08 ml Output Urine Total 1750 ml General Appearance: mild distress HEENT: Atraumatic, PERRLA Cardiovascular: Normal S1, Normal S2 Musculoskeletal: Other (Unable to assess) Neuro: Other (Unable to assess) Skin: Dry, Intact Psych/Mental Status: Mental status NL, Mood NL Medications Current Medications Medications Dose Ordered Sig/Milton Route Start Time Stop Time Status Last Admin Dose Admin Midazolam HCl 50 ml @ 1 mls/hr Q24H IV 11/18/24 14:20 11/19/24 10:39 15 MLS/HR Propofol 100 ml @ 2.52 mls/hr Q24H IV 11/18/24 15:45 11/19/24 10:38 17.64 MLS/HR Levetiracetam 100 ml @ 400 mls/hr BID IV 11/18/24 22:00 11/19/24 09:20 400 MLS/HR Risperidone 3 mg DAILY PO 11/19/24 10:00 11/19/24 09:21 3 MG Lorazepam 1 mg Q5MINP PRN IV 11/18/24 22:00 Enoxaparin Sodium 40 mg Q24H SC 11/19/24 21:00 Sodium Chloride 1,000 ml @ 75 mls/hr [id number] IV 11/19/24 07:15 11/19/24 07:15 75 MLS/HR Pantoprazole Sodium 40 mg DAILY IV 11/19/24 10:00 11/19/24 10:05 40 MG Fentanyl Citrate 250 ml @ 2.5 mls/hr Q24H IV 11/19/24 08:30 11/19/24 08:30 2.5 MLS/HR Laboratory Results Laboratory Tests 11/19/24 04:40 Chemistry Test 11/18/24 14:35 11/19/24 04:40 Albumin 4.6 g/dL (3.2-4.8) 4.1 g/dL (3.2-4.8) Calcium Level 9.0 mg/dL (8.7-10.4) 8.6 mg/dL (8.7-10.4) L Total Protein 7.3 g/dL (5.7-8.2) 6.5 g/dL (5.7-8.2) LFT Test 11/18/24 14:35 11/19/24 04:40 Alanine Aminotransferase (ALT) 81 U/L (7-40) H 63 U/L (7-40) H Alkaline Phosphatase 48 U/L (46-116) 43 U/L (46-116) L Aspartate Amino Transferase (AST) 44 U/L (13-40) H 31 U/L (13-40) Total Bilirubin 0.6 mg/dL (0.2-1.0) 0.5 mg/dL (0.2-1.0) HgA1c, TSH Test 11/18/24 14:35 Hemoglobin A1c 4.7 % A1C (<5.7) Urinalysis Test 11/18/24 14:22 Urine Color Colorless (Yellow) Urine Clarity Clear (Clear) Urine pH 7.0 (5.0-9.0) Urine Specific [place] 1.008 (1.001-1.035) Urine Protein Trace (Negative) H Urine Ketones Negative (Negative) Urine Blood Negative /uL (Negative) Urine Nitrite Negative (Negative) Urine Bilirubin Negative (Negative) Urine Urobilinogen Normal mg/dL (Negative) Urine Leukocyte Esterase Negative /uL (Negative) Urine RBC 1 /hpf (0 - 3) Urine Microscopic WBC 1 /HPF (0-3) Urine Squamous Epithelial Cells Few /hpf (<5) Urine Bacteria None seen /hpf (None Seen) Urine Hyaline Casts Few /lpf (0 - 2) Urine Glucose Normal mg/dL (Normal) Blood Gas Results Test 11/18/24 16:07 11/19/24 07:22 11/19/24 09:43 Arterial Blood pH 7.396 (7.350-7.450) 7.499 (7.350-7.450) 7.473 (7.350-7.450) FiO2 % 100.0 30.0 30.0 Labs and/or images reviewed: Labs reviewed by me, Image(s) reviewed by me Assessment/Plan Assessment/Plan Impression: -breakthrough seizure activity -history of epilepsy -schizophrenia -history of traumatic brain injury -acute hypoxic respiratory failure -hypokalemia Plan: -neurology consultation -continue current ventilator settings -continue antiepileptics -continue current sedation -potassium replacement -EEG pending -repeat labs, chest x-ray, ABG in a.m. Critical care time spent with patient discussing and formulating plan of care: 40 minutes. This does not include time spent performing procedures. This medical document was created using an electronic medical record system with [employer] dictation system. Although this document has been carefully reviewed, there may still be some phonetic and typographical errors. These areas are purely typographical due to imperfections of the software programs, and do not reflect any compromise in the patient's medical care. Plan discussed with: Patient, Other (RN) My Orders Orders - JERED BECK NP Procedure Category Date Status Time Basic Metabolic Panel LAB 11/20/24 Verified 04:00 Complete Blood Count LAB 11/20/24 Verified 04:00 Chest Portable XY 11/20/24 Transmitted 04:00 Abg W/ Co-Ox RT 11/20/24 Transmitted 04:00 Date of Service: Nov 19, 2024 Billing Provider: JERED BECK NP Common Visit Codes: [id number] CARE 30-74 MIN JERED BECK NP Nov 19, 2024 10:58
[2024-11-19] MEDS: NOREPINEPHRINE 8 MG/250ML KIT 250 ML IV ONE (18:01)
[2024-11-19] MEDS: NOREPINEPHRINE 8 MG/250ML KIT 250 ML IV SCH (19:30)
[2024-11-19] MEDS: ENOXAPARIN SOD 40 MG/0.4 ML SYRINGE SC SCH (21:00)
[2024-11-20] VITALS (44 sets, daily range): BP systolic 93–174; BP diastolic 49–104; PULSE 35–66; RESP 11–27; TEMP 98.7; O2SAT 94–100
--- NOTE | 2024-11-20 00:37 | DVHEEG2 ---
Neurology EEG Procedural Note Procedural Note EXAM DATE: 11/19/2024 REFERRING DOCTOR: Dr. [place] TECHNIQUE: Eighteen channels of EEG, 2 channels of EOG, and 1 channel of EKG were recorded using the International 10/20 system. CLINICAL DATA: The patient was referred for an EEG evaluation for the evidence of seizure disorder. MEDICATIONS: See the chart BACKGROUND ACTIVITY: The record showed diffuse moderate amount of low to medium voltage polymorphic delta and theta activity over both hemispheres, that was reactive to external stimuli ACTIVATION: Hyperventilation: Not done Photic Stimulation: Not done Sleep: Nonresponsiveness IMPRESSION: This is a moderately abnormal EEG, this EEG is seen in moderate cerebral dysfunction due to metabolic/hypoxic encephalopathy or medication effect, please correlate clinically The EKG channel showed a regular heart rate of 66 per [place] [address] ANTELMO MONTANA MD Nov 20, 2024 00:37
[2024-11-20] MEDS: DOPamine 1600MCG/ML D5W 250 ML IV ONE (02:23)
[2024-11-20] MEDS: DOPamine 1600MCG/ML D5W 250 ML IV SCH (02:23)
[2024-11-20 05:50] LABS: Basophils % (auto) 0.5 % (0.0-2.0); Eosinophils # (auto) 0.1 10 ^3/uL (0-0.8); Eosinophils % (auto) 0.7 % (0.0-7.0); Hemoglobin 13.8 g/dL (13.5-17.5); Lymphocytes # (auto) 1.2 10 ^3/uL (0.4-5.4); Monocytes # (auto) 0.7 10 ^3/uL (0-1.3)
[2024-11-20 05:54] LABS: Basophils # (auto) 0 10 ^3/uL (0-0.2); Hematocrit 38.9 % (41.0-53.0); Lymphocytes % (auto) 12.8 % (10.0-50.0); Mean Corpuscular Hemoglobin 34.7 pg (28.0-32.0); Mean Corpuscular Hgb Conc. 35.5 g/dL (32.0-36.0); Mean Corpuscular Volume 97.9 fL (80.0-100.0); Monocytes % (auto) 7.3 % (0.0-12.0); Neutrophils # (auto) 7.4 10 ^3/uL (1.6-8.6); Neutrophils % (auto) 78.7 % (37.0-80.0); Nucleated Red Blood Cells % 0.2 %; Platelet Count (auto) 129 10^3/uL (140-450); Red Blood Cells 3.98 10^6/uL (4.5-5.90); Red Cell Distribution Width 13.4 % (11.8-14.3); White Blood Cell 9.4 10^3/uL (4.4-10.8)
[2024-11-20 05:59] LABS: Anion Gap 9 (5-15); Carbon Dioxide 23 mmol/L (20-31); Potassium 3.6 mmol/L (3.5-5.1); Sodium 145 mmol/L (136-145)
[2024-11-20 06:01] LABS: Calcium 8.5 mg/dL (8.7-10.4); Chloride 113 mmol/L (98-107)
[2024-11-20 06:05] LABS: BUN/Creatinine Ratio 4.7 (10.0-20.0)
[2024-11-20 06:26] LABS: Blood Urea Nitrogen 5 mg/dL (9-23); Glucose 133 mg/dL (74-106)
--- NOTE | 2024-11-20 06:26 | DVH ---
EXAM: XR Chest, 1 View CLINICAL INDICATION: Device placement TECHNIQUE: Frontal view of the chest. COMPARISON: XY CHEST PORTABLE on DOS: 11/19/24, XY CHEST PORTABLE on DOS: 11/18/24, XY CHEST XRAY 1 V IEW on DOS: 11/18/24 FINDINGS: LUNGS AND PLEURAL SPACES: Mild pulmonary congestion. No consolidation. No pneumothorax. HEART: Unremarkable. No cardiomegaly. MEDIASTINUM: Unremarkable. Normal mediastinal contour. BONES/JOINTS: Unremarkable. No acute fracture. TUBES, LINES AND DEVICES: Right-sided central line with the distal tip in the atriocaval junction. The endotracheal tube (ETT) is in satisfactory position. Enteric tube tip in the stomach. OTHER FINDINGS: . . . IMPRESSION: Mild pulmonary congestion.
[2024-11-20 07:47] LABS: Base Excess -0.8 mmol/L (-2.0-3.0)
--- NOTE | 2024-11-20 08:52 | DVHPN2 ---
Subjective Patient intubated and sedated Reviewed: Care Plan, H&P, Labs, Medications Changes from previous H/P or p: No Changes General: Per HPI Eyes: No Pain, No Vision change, No Conjunctivae inflammation, No Eyelid inflammation, No Other, No Redness ENT: No Ear pain, No Ear discharge, No Nose pain, No Nose discharge, No Nose congestion, No Mouth pain, No Mouth swelling, No Throat pain, No Throat swelling, No Other Cardiovascular: No Chest Pain, No Palpitations, No Orthopnea, No Paroxysmal Noc. Dyspnea, No Edema, No Lt Headedness, No Other Respiratory: No Cough, No Dry, No Shortness of breath, No SOB with excertion, No Wheezing, No Hemoptysis, No Pleuritic Pain, No Sputum, No Other Gastrointestinal: No Nausea, No Vomiting, No Abdominal Pain, No Diarrhea, No Constipation, No Melena, No Hematochezia, No Other Genitourinary: No Dysuria, No Frequency, No Incontinence, No Hematuria, No Retention, No Other Musculoskeletal: No other, No neck pain, No shoulder pain, No arm pain, No back pain, No hand pain, No leg pain, No foot pain Skin: No Rash, No Lesions, No Jaundice, No Bruising, No Other Objective Vitals Vital Signs Date Time Temp Pulse Resp B/P (MAP) Pulse Ox O2 Delivery O2 Flow Rate FiO2 11/20/24 07:35 41 14 110/61 (77) 98 30 11/20/24 05:47 Mechanical Ventilator+ 11/20/24 00:45 98.7 98.7 Intake/Output Intake and Output 11/20/24 07:00 Intake Total 1744.49 ml Output Total 1950 ml Balance -205.51 ml Intake Oral 20 ml IV Total 1724.49 ml Output Urine Total 1950 ml Stool Total 0 ml General Appearance: mild distress, Other (Chemically sedated) HEENT: Atraumatic, PERRLA Cardiovascular: Normal S1, Normal S2 Musculoskeletal: Other (Unable to assess) Neuro: Other (Unable to assess) Skin: Dry, Intact Psych/Mental Status: Mental status NL, Mood NL Medications Current Medications Medications Dose Ordered Sig/Milton Route Start Time Stop Time Status Last Admin Dose Admin Midazolam HCl 50 ml @ 1 mls/hr Q24H IV 11/18/24 14:20 11/20/24 07:26 3 MLS/HR Propofol 100 ml @ 2.52 mls/hr Q24H IV 11/18/24 15:45 11/19/24 10:38 17.64 MLS/HR Levetiracetam 100 ml @ 400 mls/hr BID IV 11/18/24 22:00 11/19/24 22:14 400 MLS/HR Risperidone 3 mg DAILY PO 11/19/24 10:00 11/19/24 09:21 3 MG Lorazepam 1 mg Q5MINP PRN IV 11/18/24 22:00 Enoxaparin Sodium 40 mg Q24H SC 11/19/24 21:00 11/19/24 21:00 40 MG Sodium Chloride 1,000 ml @ 75 mls/hr [id number] IV 11/19/24 07:15 11/19/24 21:33 75 MLS/HR Pantoprazole Sodium 40 mg DAILY IV 11/19/24 10:00 11/19/24 10:05 40 MG Fentanyl Citrate 250 ml @ 2.5 mls/hr Q24H IV 11/19/24 08:30 11/19/24 08:30 2.5 MLS/HR Norepinephrine Bitartrate 250 ml @ 3.75 mls/hr Q24H IV 11/19/24 18:45 11/19/24 19:30 7.5 MLS/HR Dopamine HCl/ Dextrose 250 ml @ 15.75 mls/ hr [id number] IV 11/20/24 02:15 11/20/24 02:23 15.75 MLS/HR Laboratory Results Laboratory Tests 11/20/24 04:56 Chemistry Test 11/20/24 04:56 Calcium Level 8.5 mg/dL (8.7-10.4) L Urinalysis Test 11/18/24 14:22 Urine Color Colorless (Yellow) Urine Clarity Clear (Clear) Urine pH 7.0 (5.0-9.0) Urine Specific [place] 1.008 (1.001-1.035) Urine Protein Trace (Negative) H Urine Ketones Negative (Negative) Urine Blood Negative /uL (Negative) Urine Nitrite Negative (Negative) Urine Bilirubin Negative (Negative) Urine Urobilinogen Normal mg/dL (Negative) Urine Leukocyte Esterase Negative /uL (Negative) Urine RBC 1 /hpf (0 - 3) Urine Microscopic WBC 1 /HPF (0-3) Urine Squamous Epithelial Cells Few /hpf (<5) Urine Bacteria None seen /hpf (None Seen) Urine Hyaline Casts Few /lpf (0 - 2) Urine Glucose Normal mg/dL (Normal) Blood Gas Results Test 11/19/24 09:43 11/20/24 07:42 Arterial Blood pH 7.473 (7.350-7.450) 7.435 (7.350-7.450) FiO2 % 30.0 30.0 Microbiology Microbiology Date/Time Source Procedure Growth Status 11/18/24 14:23 Sputum Gram Stain - Final Resulted 11/18/24 14:23 Sputum Respiratory Culture - Preliminary Resulted Labs and/or images reviewed: Labs reviewed by me, Image(s) reviewed by me Assessment/Plan Assessment/Plan Impression: -breakthrough seizure activity -history of epilepsy -schizophrenia -history of traumatic brain injury -acute hypoxic respiratory failure -hypokalemia Plan: Events: Patient hemodynamically stable despite patient having bradycardia. Dopamine was started yesterday evening for noted bradycardia. EEG reviewed. Repeat labs this a.m. are benign. Chest x-ray clear. FiO2 30% -neurology consultation recommendations reviewed -continue current ventilator settings : Continue current settings. Spontaneous breathing trial today. -continue antiepileptics -Wean off sedation -EEG reviewed -continue dopamine for bradycardia. -repeat labs, chest x-ray, ABG in a.m. -discussed case with mother. All questions answered. Critical care time spent with patient discussing and formulating plan of care: 90 minutes. This does not include time spent performing procedures. This medical document was created using an electronic medical record system with [employer] dictation system. Although this document has been carefully reviewed, there may still be some phonetic and typographical errors. These areas are purely typographical due to imperfections of the software programs, and do not reflect any compromise in the patient's medical care. Plan discussed with: Patient, Other (RN, mother) My Orders Orders - JERED BECK MANAGER [employer] Procedure Category Date Status Time Chest Portable XY 11/20/24 Resulted 04:00 Abg W/ Co-Ox RT 11/20/24 Logged 04:00 Norepinephrine 8 PHA 11/19/24 In Process Mg/250ml Kit 18:45 Cpap Trial For Am ORDERS 11/20/24 Transmitted 08:30 Cpap/Sed Vacation Med ORDERS 11/20/24 Transmitted Weaning 08:30 Dexmedetomidine Hcl PHA 11/20/24 Logged In D5w (Precedex) 09:00 Date of Service: Nov 20, 2024 Billing Provider: JERED BECK NP Common Visit Codes: [id number] CARE 30-74 MIN, [id number] CARE-EACH +30MIN JERED BECK NP Nov 20, 2024 08:52
--- NOTE | 2024-11-20 09:27 | DVHPN2 ---
Progress Note - Dictate Date Seen: Nov 20, 2024 Medical Necessity Reason Pt with a Central, PICC or Fol: Yes The following are medically ne: Central Line, Crabtree Catheter Subjective Mr. Laws is a 34 years old right-handed gentleman with a history of traumatic brain injury, schizophrenia, he was brought to the [facility] on 11/17/2024 with a chief company of seizure activity. I have seen and examined the patient, discussed with his nurse, and other medical staff, he is intubated, sedated, but is responsive to light touch with eye opening, no seizure activity overnight Fentanyl 50 mcg/hour, Versed three mg per hour, dopamine 1 mcg Urinalysis, 11/18/2024: Unremarkable UDS, 11/18/2024: Cannabinoids Plasma alcohol, 11/18/2024: <3 WBC/HB/PLT/MCV 11/18/24: 6.2/14.4/135/99.9 HCO3, 11/18/2024: 18 Anion gap, 11/18/2024: 17 BUN/CR, 11/18/2024: 8/1.41 HGB A1c, 11/18/24: 4.7 TBI/AST/ALT/AP, 11/18/2024: 0.6/44/81/48 EEG, 11/19/2024: moderately abnormal EEG Chest x-ray, 11/18/2024: No acute disease CT head, 11/18/2024: No acute intracranial abnormality vital signs Vital Sign Date Time Temp Pulse Resp B/P (MAP) Pulse Ox O2 Delivery O2 Flow Rate FiO2 11/20/24 08:00 42 11/20/24 07:35 14 110/61 (77) 98 30 11/20/24 05:47 Mechanical Ventilator+ 11/20/24 00:45 98.7 98.7 Total Intake and Output 11/19/24 11/19/24 11/20/24 15:00 23:00 07:00 Intake Total 321.24 ml 695.75 ml 727.50 ml Output Total 1050 ml 900 ml Balance 321.24 ml -354.25 ml -172.50 ml medications Current Medications Medications Dose Ordered Sig/Milton Route Start Time Stop Time Status Last Admin Dose Admin Midazolam HCl 50 ml @ 1 mls/hr Q24H IV 11/18/24 14:20 11/20/24 07:26 3 MLS/HR Propofol 100 ml @ 2.52 mls/hr Q24H IV 11/18/24 15:45 11/19/24 10:38 17.64 MLS/HR Levetiracetam 100 ml @ 400 mls/hr BID IV 11/18/24 22:00 11/19/24 22:14 400 MLS/HR Risperidone 3 mg DAILY PO 11/19/24 10:00 11/19/24 09:21 3 MG Lorazepam 1 mg Q5MINP PRN IV 11/18/24 22:00 Enoxaparin Sodium 40 mg Q24H SC 11/19/24 21:00 11/19/24 21:00 40 MG Sodium Chloride 1,000 ml @ 75 mls/hr [id number] IV 11/19/24 07:15 11/19/24 21:33 75 MLS/HR Pantoprazole Sodium 40 mg DAILY IV 11/19/24 10:00 11/19/24 10:05 40 MG Fentanyl Citrate 250 ml @ 2.5 mls/hr Q24H IV 11/19/24 08:30 11/19/24 08:30 2.5 MLS/HR Norepinephrine Bitartrate 250 ml @ 3.75 mls/hr Q24H IV 11/19/24 18:45 11/19/24 19:30 7.5 MLS/HR Dopamine HCl/ Dextrose 250 ml @ 15.75 mls/ hr [id number] IV 11/20/24 02:15 11/20/24 02:23 15.75 MLS/HR objective The patient is well-nourished and well-developed with no distress. The patient is intubated MENTAL STATUS: Subjective CRANIAL NERVES: Pupils are equal, round and reactive.There are corneal reflexes and doll's eyes phenomenon. No signs of facial weakness. There are gagging or coughing reflexes SENSATION: Responses to touch MOTOR: Normal tone in the upper and lower extremity. Normal muscle bulk. No fasciculations. No spontaneous movement. REFLEXES: Deep tendon reflexes are symmetrical. No pathological reflexes. CEREBELLAR/COORDINATION: Deferred GAIT/STATION: deferred laboratory and microbiology Laboratory Tests 11/20/24 04:56 Test 11/20/24 04:56 Range/Units Serum Glucose 133 H 74-106 mg/dL Problem List Status epileptics Grand mal seizure Chronic traumatic brain injury Acute respiratory failure Schizophrenia Assessment/Plan Close monitoring Supportive treatment EEG ICU care Stabilize Vital Respiratory support/vent management Keppra 1500 mg IV b.i.d. Ativan for seizure breakthrough DVT prophylaxis/Lovenox More recommendation per clinical course This medical document was created using an electronic medical record system with [employer] dictation system. Although this document has been carefully reviewed, there may still be some phonetic and typographical errors. These areas are purely typographical due to imperfections of the software programs, and do not reflect any compromise in the patient's medical care Prognosis guarded Dietary Evaluation Review Comments: 1. Due to kcal via propofol, recommend Vital HP @ 50 ml/hr (goal). Begin at 10 ml/hr, advance by 10 ml Q4 hrs or as tolerated to goal-rate of 50 ml/hr x 24 hrs 2. When off propofol, change to Osmolite 1.2 @ 60 ml/hr + 1 pckt Prostat daily 3. Provide free water flushes of 30 ml Q6 hrs (120 ml total); adjust PRN 4. Monitor BMP/lytes and replete to WNL TF Provision: TF at goal to provide 1200 ml total volume, 1200 kcal (+465 kcal via propofol = 1665 kcal), 105 gm pro, 0 gm fiber, 1003 ml H20 (meets 100% est. kcal needs, 100% est. pro needs) Expected Outcomes/Goals: Adequate nutrition, improved hemodynamic stability. Plan discussed with: Other ANTELMO MONTANA MD Nov 20, 2024 09:27
[2024-11-20] MEDS: DEXMEDETOMIDINE HCL IN D5W 100 ML IV SCH (11:00)
[2024-11-20] MEDS: hydrALAZINE HCL 20 MG/ML VL IV PRN (22:21)
[2024-11-21] VITALS (72 sets, daily range): BP systolic 104–172; BP diastolic 59–109; PULSE 37–110; RESP 10–36; TEMP 98.4–99.9; O2SAT 91–100
[2024-11-21 05:43] LABS: Basophils # (auto) 0.1 10 ^3/uL (0-0.2); Basophils % (auto) 0.6 % (0.0-2.0); Eosinophils # (auto) 0.1 10 ^3/uL (0-0.8); Eosinophils % (auto) 1.2 % (0.0-7.0); Hematocrit 41.1 % (41.0-53.0); Hemoglobin 14.6 g/dL (13.5-17.5); Lymphocytes # (auto) 1.5 10 ^3/uL (0.4-5.4); Mean Corpuscular Hgb Conc. 35.6 g/dL (32.0-36.0); Mean Corpuscular Volume 95.6 fL (80.0-100.0); Monocytes # (auto) 0.8 10 ^3/uL (0-1.3); Monocytes % (auto) 7.6 % (0.0-12.0); Neutrophils # (auto) 7.5 10 ^3/uL (1.6-8.6); Neutrophils % (auto) 75.6 % (37.0-80.0); Platelet Count (auto) 145 10^3/uL (140-450); Red Blood Cells 4.29 10^6/uL (4.5-5.90); Red Cell Distribution Width 13.3 % (11.8-14.3)
[2024-11-21 05:55] LABS: Alkaline Phosphatase 52 U/L (46-116); Anion Gap 10 (5-15); Aspartate Aminotransferase 29 U/L (13-40); Calcium 9.5 mg/dL (8.7-10.4); Carbon Dioxide 26 mmol/L (20-31); Chloride 103 mmol/L (98-107); Sodium 139 mmol/L (136-145)
--- NOTE | 2024-11-21 06:00 | DVH ---
EXAM: XR Chest, 1 View CLINICAL INDICATION: INTUBATED TECHNIQUE: Frontal view of the chest. COMPARISON: XY CHEST PORTABLE on DOS: 11/20/24, XY CHEST PORTABLE on DOS: 11/19/24, XY CHEST PORTABLE on DOS: 11/18/24, XY CHEST XRAY 1 VIEW on DOS: 11/18/24 FINDINGS: LUNGS AND PLEURAL SPACES: Pulmonary venous congestion. No consolidation. No pneumothorax. HEART: Unremarkable. No cardiomegaly. MEDIASTINUM: Unremarkable. Normal mediastinal contour. BONES/JOINTS: Unremarkable. No acute fracture. TUBES, LINES AND DEVICES: The endotracheal tube (ETT) is in satisfactory position. Stable right-si ded central catheter. Enteric tube tip in the stomach. OTHER FINDINGS: . . . IMPRESSION: Pulmonary venous congestion.
[2024-11-21 06:13] LABS: Alanine Aminotransferase 50 U/L (7-40); Albumin 4.9 g/dL (3.2-4.8); BUN/Creatinine Ratio 6.3 (10.0-20.0); Bilirubin, Total 1.4 mg/dL (0.2-1.0); Blood Urea Nitrogen < 5 mg/dL (9-23); Glucose 126 mg/dL (74-106)
[2024-11-21] MEDS: MAGNESIUM SULFATE 1GM/100ML 100 ML IV ONE (07:49)
[2024-11-21] MEDS: POTASSIUM CHL 20MEQ/50ML 50 ML IV SCH (08:09)
--- NOTE | 2024-11-21 09:22 | DVHPN2 ---
Subjective Patient awake and following commands. Reviewed: Care Plan, H&P, Labs, Medications Changes from previous H/P or p: Changes General: Per HPI Eyes: No Pain, No Vision change, No Conjunctivae inflammation, No Eyelid inflammation, No Other, No Redness ENT: No Ear pain, No Ear discharge, No Nose pain, No Nose discharge, No Nose congestion, No Mouth pain, No Mouth swelling, No Throat pain, No Throat swelling, No Other Cardiovascular: No Chest Pain, No Palpitations, No Orthopnea, No Paroxysmal Noc. Dyspnea, No Edema, No Lt Headedness, No Other Respiratory: No Cough, No Dry, No Shortness of breath, No SOB with excertion, No Wheezing, No Hemoptysis, No Pleuritic Pain, No Sputum, No Other Gastrointestinal: No Nausea, No Vomiting, No Abdominal Pain, No Diarrhea, No Constipation, No Melena, No Hematochezia, No Other Genitourinary: No Dysuria, No Frequency, No Incontinence, No Hematuria, No Retention, No Other Musculoskeletal: No other, No neck pain, No shoulder pain, No arm pain, No back pain, No hand pain, No leg pain, No foot pain Skin: No Rash, No Lesions, No Jaundice, No Bruising, No Other Objective Vitals Vital Signs Date Time Temp Pulse Resp B/P (MAP) Pulse Ox O2 Delivery O2 Flow Rate FiO2 11/21/24 08:23 61 15 150/84 (106) 99 30 11/21/24 04:00 Mechanical Ventilator+ 11/21/24 00:00 98.0 98.0 11/20/24 22:00 14 Intake/Output Intake and Output 11/21/24 07:00 Intake Total 2326.45 ml Output Total 3500 ml Balance -1173.55 ml IV Total 2326.45 ml Output Urine Total 3500 ml General Appearance: Alert, Oriented X3, Other (Intubated) HEENT: Atraumatic, PERRLA Lungs: Clear to auscultation, Normal air movement, Other (Mechanical ventilation) Cardiovascular: Normal S1, Normal S2 Abdomen: Normal bowel sounds, Soft, No tenderness Musculoskeletal: Other (Unable to assess) Neuro: Other (Unable to assess) Skin: Dry, Intact Psych/Mental Status: Mental status NL, Mood NL Medications Current Medications Medications Dose Ordered Sig/Milton Route Start Time Stop Time Status Last Admin Dose Admin Midazolam HCl 50 ml @ 1 mls/hr Q24H IV 11/18/24 14:20 11/20/24 07:26 3 MLS/HR Propofol 100 ml @ 2.52 mls/hr Q24H IV 11/18/24 15:45 11/21/24 04:25 2.52 MLS/HR Levetiracetam 100 ml @ 400 mls/hr BID IV 11/18/24 22:00 11/20/24 22:28 400 MLS/HR Risperidone 3 mg DAILY PO 11/19/24 10:00 11/19/24 09:21 3 MG Lorazepam 1 mg Q5MINP PRN IV 11/18/24 22:00 Enoxaparin Sodium 40 mg Q24H SC 11/19/24 21:00 11/20/24 22:28 40 MG Sodium Chloride 1,000 ml @ 75 mls/hr [id number] IV 11/19/24 07:15 11/21/24 00:31 75 MLS/HR Pantoprazole Sodium 40 mg DAILY IV 11/19/24 10:00 11/20/24 10:00 40 MG Fentanyl Citrate 250 ml @ 2.5 mls/hr Q24H IV 11/19/24 08:30 11/21/24 01:10 15 MLS/HR Norepinephrine Bitartrate 250 ml @ 3.75 mls/hr Q24H IV 11/19/24 18:45 11/19/24 19:30 7.5 MLS/HR Dopamine HCl/ Dextrose 250 ml @ 15.75 mls/ hr [id number] IV 11/20/24 02:15 11/21/24 06:07 63 MLS/HR Hydralazine HCl 5 mg Q6H PRN IV 11/20/24 20:15 11/21/24 08:09 5 MG Potassium Chloride 50 ml @ 25 mls/hr Q2H IV 11/21/24 07:00 11/21/24 10:59 11/21/24 08:09 25 MLS/HR Laboratory Results Laboratory Tests 11/21/24 05:10 Chemistry Test 11/21/24 05:10 Albumin 4.9 g/dL (3.2-4.8) H Calcium Level 9.5 mg/dL (8.7-10.4) Magnesium Level 2.1 mg/dL (1.6-2.6) Total Protein 8.0 g/dL (5.7-8.2) LFT Test 11/21/24 05:10 Alanine Aminotransferase (ALT) 50 U/L (7-40) H Alkaline Phosphatase 52 U/L (46-116) Aspartate Amino Transferase (AST) 29 U/L (13-40) Total Bilirubin 1.4 mg/dL (0.2-1.0) H Urinalysis Test 11/18/24 14:22 Urine Color Colorless (Yellow) Urine Clarity Clear (Clear) Urine pH 7.0 (5.0-9.0) Urine Specific [place] 1.008 (1.001-1.035) Urine Protein Trace (Negative) H Urine Ketones Negative (Negative) Urine Blood Negative /uL (Negative) Urine Nitrite Negative (Negative) Urine Bilirubin Negative (Negative) Urine Urobilinogen Normal mg/dL (Negative) Urine Leukocyte Esterase Negative /uL (Negative) Urine RBC 1 /hpf (0 - 3) Urine Microscopic WBC 1 /HPF (0-3) Urine Squamous Epithelial Cells Few /hpf (<5) Urine Bacteria None seen /hpf (None Seen) Urine Hyaline Casts Few /lpf (0 - 2) Urine Glucose Normal mg/dL (Normal) Blood Gas Results Test 11/21/24 07:33 Arterial Blood pH 7.467 (7.350-7.450) FiO2 % 30.0 Microbiology Microbiology Date/Time Source Procedure Growth Status 11/19/24 09:49 Blood Blood Culture - Preliminary NO GROWTH AFTER 24 HOURS OF INCUBATION. Resulted 11/18/24 14:23 Sputum Gram Stain - Final Resulted 11/18/24 14:23 Sputum Respiratory Culture - Preliminary Resulted Labs and/or images reviewed: Labs reviewed by me, Image(s) reviewed by me Assessment/Plan Assessment/Plan Impression: -breakthrough seizure activity -history of epilepsy -schizophrenia -history of traumatic brain injury -acute hypoxic respiratory failure -hypokalemia Plan: Events: Patient failed CPAP trial with noted apneic periods yesterday. Patient now awake and following commands. Taking spontaneous breaths above ventilator. Plans for CPAP with a extubation today. Patient noted to have hypokalemia. Noted replacement ordered. -neurology consultation recommendations reviewed -continue current ventilator settings : Continue current settings. Spontaneous breathing trial today. -continue antiepileptics -continue dopamine for bradycardia. -repeat labs, chest x-ray, ABG in a.m. Critical care time spent with patient discussing and formulating plan of care: 90 minutes. This does not include time spent performing procedures. This medical document was created using an electronic medical record system with [employer] dictation system. Although this document has been carefully reviewed, there may still be some phonetic and typographical errors. These areas are purely typographical due to imperfections of the software programs, and do not reflect any compromise in the patient's medical care. Plan discussed with: Patient, Other (RN) My Orders Orders - JERED BECK NP Procedure Category Date Status Time Mrsa Screen PRIYANK 11/21/24 In Process 03:40 Chest Portable XY 11/21/24 Resulted 05:00 Abg W/ Co-Ox RT 11/21/24 Logged 06:00 Cpap Trial For Am ORDERS 11/21/24 Transmitted 08:30 Cpap/Sed Vacation Med ORDERS 11/21/24 Transmitted Weaning 08:30 Date of Service: Nov 21, 2024 Billing Provider: JERED BECK NP Common Visit Codes: [id number] CARE 30-74 MIN JERED BECK NP Nov 21, 2024 09:22
--- NOTE | 2024-11-21 10:42 | DVHPN2 ---
Progress Note - Dictate Date Seen: Nov 21, 2024 Medical Necessity Reason Pt with a Central, PICC or Fol: Yes The following are medically ne: Central Line, Crabtree Catheter Subjective Mr. Laws is a 34 years old right-handed gentleman with a history of traumatic brain injury, schizophrenia, he was brought to the [facility] on 11/17/2024 with a chief company of seizure activity. I have seen and examined the patient, discussed with his nurse, and other medical staff, he is intubated, awake, able to use communication board to talked to us, he moves the arms and legs Urinalysis, 11/18/2024: Unremarkable UDS, 11/18/2024: Cannabinoids Plasma alcohol, 11/18/2024: <3 WBC/HB/PLT/MCV 11/18/24: 6.2/14.4/135/99.9 HCO3, 11/18/2024: 18 Anion gap, 11/18/2024: 17 BUN/CR, 11/18/2024: 8/1.41 HGB A1c, 11/18/24: 4.7 TBI/AST/ALT/AP, 11/18/2024: 0.6/44/81/48 EEG, 11/19/2024: moderately abnormal EEG Chest x-ray, 11/18/2024: No acute disease CT head, 11/18/2024: No acute intracranial abnormality vital signs Vital Sign Date Time Temp Pulse Resp B/P (MAP) Pulse Ox O2 Delivery O2 Flow Rate FiO2 11/21/24 09:22 64 20 132/91 (105) 100 30 11/21/24 06:45 98.6 209.5 11/21/24 06:00 Mechanical Ventilator+ 11/20/24 22:00 14 Total Intake and Output 11/20/24 11/20/24 11/21/24 15:00 23:00 07:00 Intake Total 834.2 ml 974.10 ml 1206.25 ml Output Total 1100 ml 1600 ml 2500 ml Balance -265.8 ml -625.90 ml -1293.75 ml medications Current Medications Medications Dose Ordered Sig/Milton Route Start Time Stop Time Status Last Admin Dose Admin Midazolam HCl 50 ml @ 1 mls/hr Q24H IV 11/18/24 14:20 11/20/24 07:26 3 MLS/HR Propofol 100 ml @ 2.52 mls/hr Q24H IV 11/18/24 15:45 11/21/24 04:25 2.52 MLS/HR Levetiracetam 100 ml @ 400 mls/hr BID IV 11/18/24 22:00 11/21/24 09:41 400 MLS/HR Risperidone 3 mg DAILY PO 11/19/24 10:00 11/21/24 09:41 3 MG Lorazepam 1 mg Q5MINP PRN IV 11/18/24 22:00 Enoxaparin Sodium 40 mg Q24H SC 11/19/24 21:00 11/20/24 22:28 40 MG Sodium Chloride 1,000 ml @ 75 mls/hr [id number] IV 11/19/24 07:15 11/21/24 00:31 75 MLS/HR Pantoprazole Sodium 40 mg DAILY IV 11/19/24 10:00 11/21/24 09:41 40 MG Fentanyl Citrate 250 ml @ 2.5 mls/hr Q24H IV 11/19/24 08:30 11/21/24 01:10 15 MLS/HR Norepinephrine Bitartrate 250 ml @ 3.75 mls/hr Q24H IV 11/19/24 18:45 11/19/24 19:30 7.5 MLS/HR Dopamine HCl/ Dextrose 250 ml @ 15.75 mls/ hr [id number] IV 11/20/24 02:15 11/21/24 06:07 63 MLS/HR Hydralazine HCl 5 mg Q6H PRN IV 11/20/24 20:15 11/21/24 08:09 5 MG Potassium Chloride 50 ml @ 25 mls/hr Q2H IV 11/21/24 07:00 11/21/24 10:59 11/21/24 09:41 25 MLS/HR objective The patient is well-nourished and well-developed with no distress. The patient is intubated MENTAL STATUS: Subjective CRANIAL NERVES: Pupils are equal, round and reactive.PERRL. Sensory motor examination in bilateral trigeminal distribution is normal No signs of facial weakness. SENSATION: Normal to pinprick and light touch MOTOR: Normal tone in the upper and lower extremity. Normal muscle bulk. No fasciculations. Muscle strength feels fine REFLEXES: Deep tendon reflexes are symmetrical. No pathological reflexes. CEREBELLAR/COORDINATION: No ataxia GAIT/STATION: deferred laboratory and microbiology Laboratory Tests 11/21/24 05:10 Test 11/21/24 05:10 Range/Units Serum Glucose 126 H 74-106 mg/dL Problem List Status epileptics Grand mal seizure Chronic traumatic brain injury Acute respiratory failure Schizophrenia He is improving Assessment/Plan Close monitoring Supportive treatment EEG ICU care Stabilize Vital Respiratory support/vent management Keppra 1500 mg IV b.i.d. Ativan for seizure breakthrough DVT prophylaxis/Lovenox Sitter Extubation today More recommendation per clinical course This medical document was created using an electronic medical record system with [employer] dictation system. Although this document has been carefully reviewed, there may still be some phonetic and typographical errors. These areas are purely typographical due to imperfections of the software programs, and do not reflect any compromise in the patient's medical care Prognosis poor Dietary Evaluation Review Comments: 1. Due to kcal via propofol, recommend Vital HP @ 50 ml/hr (goal). Begin at 10 ml/hr, advance by 10 ml Q4 hrs or as tolerated to goal-rate of 50 ml/hr x 24 hrs 2. When off propofol, change to Osmolite 1.2 @ 60 ml/hr + 1 pckt Prostat daily 3. Provide free water flushes of 30 ml Q6 hrs (120 ml total); adjust PRN 4. Monitor BMP/lytes and replete to WNL TF Provision: TF at goal to provide 1200 ml total volume, 1200 kcal (+465 kcal via propofol = 1665 kcal), 105 gm pro, 0 gm fiber, 1003 ml H20 (meets 100% est. kcal needs, 100% est. pro needs) Expected Outcomes/Goals: Adequate nutrition, improved hemodynamic stability. Plan discussed with: Patient, Other ANTELMO MONTANA MD Nov 21, 2024 10:42
[2024-11-21] MEDS ORDERED: ONDANSETRON HCL 4 MG/2 ML VIAL IV PRN (10:45)
[2024-11-21 12:06] LABS: Base Excess 1.4 mmol/L (-2.0-3.0)
[2024-11-21 14:54] LABS: Chloride 105 mmol/L (98-107); Potassium 3.6 mmol/L (3.5-5.1); Sodium 140 mmol/L (136-145)
[2024-11-21 14:55] LABS: Anion Gap 10 (5-15); Calcium 9.3 mg/dL (8.7-10.4); Carbon Dioxide 25 mmol/L (20-31)
[2024-11-21 15:00] LABS: Glucose 93 mg/dL (74-106)
[2024-11-21 15:01] LABS: BUN/Creatinine Ratio 6.4 (10.0-20.0); Blood Urea Nitrogen < 5 mg/dL (9-23); Magnesium 2.5 mg/dL (1.6-2.6)
[2024-11-22] VITALS (10 sets, daily range): BP systolic 125–147; BP diastolic 84–91; PULSE 54–80; RESP 18–22; TEMP 98–98.3; O2SAT 94–100
[2024-11-22 07:12] LABS: Basophils # (auto) 0 10 ^3/uL (0-0.2); Eosinophils # (auto) 0.1 10 ^3/uL (0-0.8); Hemoglobin 14.2 g/dL (13.5-17.5); Lymphocytes # (auto) 1.2 10 ^3/uL (0.4-5.4); Mean Corpuscular Hemoglobin 34.2 pg (28.0-32.0); Monocytes # (auto) 0.5 10 ^3/uL (0-1.3); Red Blood Cells 4.17 10^6/uL (4.5-5.90); Red Cell Distribution Width 13.1 % (11.8-14.3)
[2024-11-22 07:14] LABS: Basophils % (auto) 0.7 % (0.0-2.0); Eosinophils % (auto) 1.8 % (0.0-7.0); Hematocrit 40.4 % (41.0-53.0); Lymphocytes % (auto) 17.8 % (10.0-50.0); Mean Corpuscular Hgb Conc. 35.3 g/dL (32.0-36.0); Mean Corpuscular Volume 96.8 fL (80.0-100.0); Neutrophils # (auto) 4.9 10 ^3/uL (1.6-8.6); Neutrophils % (auto) 71.7 % (37.0-80.0); Nucleated Red Blood Cells % 0.2 %; Platelet Count (auto) 141 10^3/uL (140-450); White Blood Cell 6.8 10^3/uL (4.4-10.8)
[2024-11-22 07:30] LABS: Calcium 9.5 mg/dL (8.7-10.4); Chloride 106 mmol/L (98-107); Potassium 3.9 mmol/L (3.5-5.1); Sodium 140 mmol/L (136-145)
[2024-11-22 07:36] LABS: Glucose 84 mg/dL (74-106)
[2024-11-22 07:39] LABS: Blood Urea Nitrogen 8 mg/dL (9-23)
[2024-11-22 07:49] LABS: Anion Gap 10 (5-15); Carbon Dioxide 24 mmol/L (20-31)
--- NOTE | 2024-11-22 12:38 | DVHPN2 ---
Subjective Patient is seen and examined at bedside. Status post extubated. Patient is still very groggy and sleepy. Sister at bedside. Reviewed: Care Plan, H&P, Labs, Medications Changes from previous H/P or p: No Changes General: Per HPI Eyes: No Pain, No Vision change, No Conjunctivae inflammation, No Eyelid inflammation, No Other, No Redness ENT: No Ear pain, No Ear discharge, No Nose pain, No Nose discharge, No Nose congestion, No Mouth pain, No Mouth swelling, No Throat pain, No Throat swelling, No Other Cardiovascular: No Chest Pain, No Palpitations, No Orthopnea, No Paroxysmal Noc. Dyspnea, No Edema, No Lt Headedness, No Other Respiratory: No Cough, No Dry, No Shortness of breath, No SOB with excertion, No Wheezing, No Hemoptysis, No Pleuritic Pain, No Sputum, No Other Gastrointestinal: No Nausea, No Vomiting, No Abdominal Pain, No Diarrhea, No Constipation, No Melena, No Hematochezia, No Other Genitourinary: No Dysuria, No Frequency, No Incontinence, No Hematuria, No Retention, No Other Musculoskeletal: No other, No neck pain, No shoulder pain, No arm pain, No back pain, No hand pain, No leg pain, No foot pain Skin: No Rash, No Lesions, No Jaundice, No Bruising, No Other Objective Vitals Vital Signs Date Time Temp Pulse Resp B/P (MAP) Pulse Ox O2 Delivery O2 Flow Rate FiO2 11/22/24 09:00 98.3 58 22 147/84 (105) 96 98.3 11/22/24 08:00 Mechanical Ventilator+ 2 50 50 Intake/Output Intake and Output 11/22/24 07:00 Intake Total 1452.05 ml Output Total 1500 ml Balance -47.95 ml Intake Oral 600 ml IV Total 852.05 ml Output Urine Total 1500 ml General Appearance: Alert, Oriented X3, Other (Intubated) HEENT: Atraumatic, PERRLA Lungs: Clear to auscultation, Normal air movement, Other (Mechanical ventilation) Cardiovascular: Normal S1, Normal S2 Abdomen: Normal bowel sounds, Soft, No tenderness Musculoskeletal: Other (Unable to assess) Neuro: Other (Unable to assess) Skin: Dry, Intact Psych/Mental Status: Mental status NL, Mood NL Medications Current Medications Medications Dose Ordered Sig/[place] Route Start Time Stop Time Status Last Admin Dose Admin Midazolam HCl 50 ml @ 1 mls/hr Q24H IV 11/18/24 14:20 11/20/24 07:26 3 MLS/HR Propofol 100 ml @ 2.52 mls/hr Q24H IV 11/18/24 15:45 11/21/24 04:25 2.52 MLS/HR Levetiracetam 100 ml @ 400 mls/hr BID IV 11/18/24 22:00 11/22/24 10:12 400 MLS/HR Risperidone 3 mg DAILY PO 11/19/24 10:00 11/22/24 09:09 3 MG Lorazepam 1 mg Q5MINP PRN IV 11/18/24 22:00 Enoxaparin Sodium 40 mg Q24H SC 11/19/24 21:00 11/20/24 22:28 40 MG Sodium Chloride 1,000 ml @ 75 mls/hr [id number] IV 11/19/24 07:15 11/22/24 10:26 75 MLS/HR Pantoprazole Sodium 40 mg DAILY IV 11/19/24 10:00 11/22/24 09:11 40 MG Fentanyl Citrate 250 ml @ 2.5 mls/hr Q24H IV 11/19/24 08:30 11/21/24 01:10 15 MLS/HR Norepinephrine Bitartrate 250 ml @ 3.75 mls/hr Q24H IV 11/19/24 18:45 11/19/24 19:30 7.5 MLS/HR Dopamine HCl/ Dextrose 250 ml @ 15.75 mls/ hr [id number] IV 11/20/24 02:15 11/21/24 06:07 63 MLS/HR Hydralazine HCl 5 mg Q6H PRN IV 11/20/24 20:15 11/21/24 08:09 5 MG Ondansetron HCl 4 mg Q4HPRN PRN IV 11/21/24 10:45 Laboratory Results Laboratory Tests 11/22/24 05:58 Chemistry Test 11/21/24 14:30 11/22/24 05:58 Calcium Level 9.3 mg/dL (8.7-10.4) 9.5 mg/dL (8.7-10.4) Magnesium Level 2.5 mg/dL (1.6-2.6) Urinalysis Test 11/18/24 14:22 Urine Color Colorless (Yellow) Urine Clarity Clear (Clear) Urine pH 7.0 (5.0-9.0) Urine Specific [place] 1.008 (1.001-1.035) Urine Protein Trace (Negative) H Urine Ketones Negative (Negative) Urine Blood Negative /uL (Negative) Urine Nitrite Negative (Negative) Urine Bilirubin Negative (Negative) Urine Urobilinogen Normal mg/dL (Negative) Urine Leukocyte Esterase Negative /uL (Negative) Urine RBC 1 /hpf (0 - 3) Urine Microscopic WBC 1 /HPF (0-3) Urine Squamous Epithelial Cells Few /hpf (<5) Urine Bacteria None seen /hpf (None Seen) Urine Hyaline Casts Few /lpf (0 - 2) Urine Glucose Normal mg/dL (Normal) Microbiology Microbiology Date/Time Source Procedure Growth Status 11/21/24 03:30 Nose MRSA Screen - Final Complete 11/19/24 09:49 Blood Blood Culture - Preliminary NO GROWTH AFTER 72 HOURS OF INCUBATION. Resulted 11/18/24 14:23 Sputum Gram Stain - Final Resulted 11/18/24 14:23 Sputum Respiratory Culture - Preliminary Resulted Labs and/or images reviewed: Labs reviewed by me Assessment/Plan Assessment/Plan breakthrough seizure activity -history of epilepsy -schizophrenia -history of traumatic brain injury -acute hypoxic respiratory failure -hypokalemia Plan: Continuing current management. Swallow evaluation. If the patient pass then we will anticipate to start soft regular diet Continuing Keppra a 1500 mg IV b.i.d. Waiting for EEG Discussed with patient and sister at bedside length regarding to his plan of care Replace potassium This medical document was created using an electronic medical record system with [employer] direct computerized dictation system. Although this document has been carefully reviewed, there may still be some phonetic and typographical errors. These areas are purely typographical due to imperfections of the software programs, and do not reflect any compromise in the patient's medical care. Plan discussed with: Patient Date of Service: Nov 22, 2024 Billing Provider: EILEEN BLUE MD Common Visit Codes: [id number] INP/OBS CARE(HIGH) EILEEN BLUE MD Nov 22, 2024 12:38
[2024-11-23] VITALS (7 sets, daily range): BP systolic 122–144; BP diastolic 80–91; PULSE 56–76; RESP 17–20; TEMP 98.1–98.6; O2SAT 93–100
--- NOTE | 2024-11-23 12:01 | DVHPN2 ---
Subjective Patient is seen and examined at bedside. Status post extubated. The patient is more alert awake today. The patient had walk with physical therapy out in the hallway. Family member at bedside. Reviewed: Care Plan, H&P, Labs, Medications Changes from previous H/P or p: No Changes General: Per HPI Eyes: No Pain, No Vision change, No Conjunctivae inflammation, No Eyelid inflammation, No Other, No Redness ENT: No Ear pain, No Ear discharge, No Nose pain, No Nose discharge, No Nose congestion, No Mouth pain, No Mouth swelling, No Throat pain, No Throat swelling, No Other Cardiovascular: No Chest Pain, No Palpitations, No Orthopnea, No Paroxysmal Noc. Dyspnea, No Edema, No Lt Headedness, No Other Respiratory: No Cough, No Dry, No Shortness of breath, No SOB with excertion, No Wheezing, No Hemoptysis, No Pleuritic Pain, No Sputum, No Other Gastrointestinal: No Nausea, No Vomiting, No Abdominal Pain, No Diarrhea, No Constipation, No Melena, No Hematochezia, No Other Genitourinary: No Dysuria, No Frequency, No Incontinence, No Hematuria, No Retention, No Other Musculoskeletal: No other, No neck pain, No shoulder pain, No arm pain, No back pain, No hand pain, No leg pain, No foot pain Skin: No Rash, No Lesions, No Jaundice, No Bruising, No Other Objective Vitals Vital Signs Date Time Temp Pulse Resp B/P (MAP) Pulse Ox O2 Delivery O2 Flow Rate FiO2 11/23/24 09:00 98.1 63 17 144/91 (108) 96 98.1 11/23/24 08:00 Mechanical Ventilator+ 2 50 50 Intake/Output Intake and Output 11/23/24 07:00 Intake Total 1390 ml Output Total 1000 ml Balance 390 ml Intake Oral 440 ml IV Total 950 ml Output Urine Total 1000 ml General Appearance: Alert, Oriented X3, Cooperative, No acute distress, Other (Intubated) HEENT: Atraumatic, PERRLA Lungs: Clear to auscultation, Normal air movement, Other (Mechanical ventilation) Cardiovascular: Normal S1, Normal S2 Abdomen: Normal bowel sounds, Soft, No tenderness Musculoskeletal: Other (Unable to assess) Neuro: Other (Unable to assess) Skin: Dry, Intact Psych/Mental Status: Mental status NL, Mood NL Medications Current Medications Medications Dose Ordered Sig/[place] Route Start Time Stop Time Status Last Admin Dose Admin Midazolam HCl 50 ml @ 1 mls/hr Q24H IV 11/18/24 14:20 11/20/24 07:26 3 MLS/HR Propofol 100 ml @ 2.52 mls/hr Q24H IV 11/18/24 15:45 11/21/24 04:25 2.52 MLS/HR Levetiracetam 100 ml @ 400 mls/hr BID IV 11/18/24 22:00 11/23/24 09:46 400 MLS/HR Risperidone 3 mg DAILY PO 11/19/24 10:00 11/23/24 09:03 3 MG Lorazepam 1 mg Q5MINP PRN IV 11/18/24 22:00 Enoxaparin Sodium 40 mg Q24H SC 11/19/24 21:00 11/22/24 21:08 40 MG Sodium Chloride 1,000 ml @ 75 mls/hr [id number] IV 11/19/24 07:15 11/23/24 09:51 75 MLS/HR Pantoprazole Sodium 40 mg DAILY IV 11/19/24 10:00 11/23/24 09:03 40 MG Fentanyl Citrate 250 ml @ 2.5 mls/hr Q24H IV 11/19/24 08:30 11/21/24 01:10 15 MLS/HR Norepinephrine Bitartrate 250 ml @ 3.75 mls/hr Q24H IV 11/19/24 18:45 11/19/24 19:30 7.5 MLS/HR Dopamine HCl/ Dextrose 250 ml @ 15.75 mls/ hr [id number] IV 11/20/24 02:15 11/21/24 06:07 63 MLS/HR Hydralazine HCl 5 mg Q6H PRN IV 11/20/24 20:15 11/21/24 08:09 5 MG Ondansetron HCl 4 mg Q4HPRN PRN IV 11/21/24 10:45 Laboratory Results Laboratory Tests 11/22/24 05:58 Urinalysis Test 11/18/24 14:22 Urine Color Colorless (Yellow) Urine Clarity Clear (Clear) Urine pH 7.0 (5.0-9.0) Urine Specific [place] 1.008 (1.001-1.035) Urine Protein Trace (Negative) H Urine Ketones Negative (Negative) Urine Blood Negative /uL (Negative) Urine Nitrite Negative (Negative) Urine Bilirubin Negative (Negative) Urine Urobilinogen Normal mg/dL (Negative) Urine Leukocyte Esterase Negative /uL (Negative) Urine RBC 1 /hpf (0 - 3) Urine Microscopic WBC 1 /HPF (0-3) Urine Squamous Epithelial Cells Few /hpf (<5) Urine Bacteria None seen /hpf (None Seen) Urine Hyaline Casts Few /lpf (0 - 2) Urine Glucose Normal mg/dL (Normal) Microbiology Microbiology Date/Time Source Procedure Growth Status 11/21/24 03:30 Nose MRSA Screen - Final Complete 11/19/24 09:49 Blood Blood Culture - Preliminary NO GROWTH AFTER 72 HOURS OF INCUBATION. Resulted 11/18/24 14:23 Sputum Gram Stain - Final Complete 11/18/24 14:23 Sputum Respiratory Culture - Final Complete Labs and/or images reviewed: Labs reviewed by me Assessment/Plan Assessment/Plan breakthrough seizure activity -history of epilepsy -schizophrenia -history of traumatic brain injury -acute hypoxic respiratory failure -hypokalemia Plan: Continuing current management. Swallow evaluation. If the patient pass then we will anticipate to start soft regular diet Continuing Keppra a 1500 mg IV b.i.d. Waiting for EEG Discussed with patient and sister at bedside length regarding to his plan of care Replace potassium This medical document was created using an electronic medical record system with [employer] computerized dictation system. Although this document has been carefully reviewed, there may still be some phonetic and typographical errors. These areas are purely typographical due to imperfections of the software programs, and do not reflect any compromise in the patient's medical care. Plan discussed with: Patient, Other (Family member, sister) My Orders Orders - EILEEN BLUE MD Procedure Category Date Status Time Pt Request For Service PT 11/22/24 Logged 13:21 Mechanical Soft Diet DIET 11/22/24 Transmitted Dinner Date of Service: Nov 23, 2024 Billing Provider: EILEEN BLUE MD Common Visit Codes: [id number] INP/OBS CARE(HIGH) EILEEN BLUE MD Nov 23, 2024 12:01
[2024-11-24] VITALS (7 sets, daily range): BP systolic 128–156; BP diastolic 84–97; PULSE 60–82; RESP 18; TEMP 97.7–98.2; O2SAT 92–96
[2024-11-24 08:31] LABS: Basophils # (auto) 0.1 10 ^3/uL (0-0.2); Eosinophils # (auto) 0.1 10 ^3/uL (0-0.8); Eosinophils % (auto) 2.4 % (0.0-7.0); Hematocrit 39.2 % (41.0-53.0); Hemoglobin 13.8 g/dL (13.5-17.5); Lymphocytes # (auto) 1.6 10 ^3/uL (0.4-5.4); Lymphocytes % (auto) 30.6 % (10.0-50.0); Mean Corpuscular Hemoglobin 34.2 pg (28.0-32.0); Mean Corpuscular Hgb Conc. 35.3 g/dL (32.0-36.0); Mean Corpuscular Volume 96.8 fL (80.0-100.0); Monocytes # (auto) 0.4 10 ^3/uL (0-1.3); Monocytes % (auto) 7.3 % (0.0-12.0); Neutrophils # (auto) 3.1 10 ^3/uL (1.6-8.6); Neutrophils % (auto) 58.7 % (37.0-80.0); Nucleated Red Blood Cells % 0.2 %; Platelet Count (auto) 161 10^3/uL (140-450); Red Blood Cells 4.05 10^6/uL (4.5-5.90); White Blood Cell 5.3 10^3/uL (4.4-10.8)
[2024-11-24 08:40] LABS: Anion Gap 9 (5-15); Carbon Dioxide 27 mmol/L (20-31); Chloride 107 mmol/L (98-107); Potassium 3.8 mmol/L (3.5-5.1); Sodium 143 mmol/L (136-145)
[2024-11-24 08:41] LABS: Calcium 9.8 mg/dL (8.7-10.4)
[2024-11-24 08:46] LABS: BUN/Creatinine Ratio 7.5 (10.0-20.0); Glucose 87 mg/dL (74-106)
[2024-11-24 08:47] LABS: Blood Urea Nitrogen 7 mg/dL (9-23)
--- NOTE | 2024-11-24 11:14 | DVHPN2 ---
Subjective Patient is seen and examined at bedside. The patient is more alert awake today. The patient walk with physical therapist today. Reviewed: Care Plan, H&P, Labs, Medications Changes from previous H/P or p: No Changes General: Per HPI Eyes: No Pain, No Vision change, No Conjunctivae inflammation, No Eyelid inflammation, No Other, No Redness ENT: No Ear pain, No Ear discharge, No Nose pain, No Nose discharge, No Nose congestion, No Mouth pain, No Mouth swelling, No Throat pain, No Throat swelling, No Other Cardiovascular: No Chest Pain, No Palpitations, No Orthopnea, No Paroxysmal Noc. Dyspnea, No Edema, No Lt Headedness, No Other Respiratory: No Cough, No Dry, No Shortness of breath, No SOB with excertion, No Wheezing, No Hemoptysis, No Pleuritic Pain, No Sputum, No Other Gastrointestinal: No Nausea, No Vomiting, No Abdominal Pain, No Diarrhea, No Constipation, No Melena, No Hematochezia, No Other Genitourinary: No Dysuria, No Frequency, No Incontinence, No Hematuria, No Retention, No Other Musculoskeletal: No other, No neck pain, No shoulder pain, No arm pain, No back pain, No hand pain, No leg pain, No foot pain Skin: No Rash, No Lesions, No Jaundice, No Bruising, No Other Objective Vitals Vital Signs Date Time Temp Pulse Resp B/P (MAP) Pulse Ox O2 Delivery O2 Flow Rate FiO2 11/24/24 08:39 98.1 60 18 156/97 (116) 95 98.1 11/24/24 08:01 Room Air* 0 21 Intake/Output Intake and Output 11/24/24 07:00 Intake Total 4410 ml Output Total 2200 ml Balance 2210 ml Intake Oral 3560 ml IV Total 850 ml Output Urine Total 2200 ml # Bowel Movements 1 General Appearance: Alert, Oriented X3, Cooperative, No acute distress, Other (Intubated) HEENT: Atraumatic, PERRLA Lungs: Clear to auscultation, Normal air movement, Other (Mechanical ventilation) Cardiovascular: Normal S1, Normal S2 Abdomen: Normal bowel sounds, Soft, No tenderness Musculoskeletal: Other (Unable to assess) Neuro: Other (Unable to assess) Skin: Dry, Intact Psych/Mental Status: Mental status NL, Mood NL Medications Current Medications Medications Dose Ordered Sig/[place] Route Start Time Stop Time Status Last Admin Dose Admin Levetiracetam 100 ml @ 400 mls/hr BID IV 11/18/24 22:00 11/24/24 09:43 400 MLS/HR Risperidone 3 mg DAILY PO 11/19/24 10:00 11/24/24 09:40 3 MG Lorazepam 1 mg Q5MINP PRN IV 11/18/24 22:00 Enoxaparin Sodium 40 mg Q24H SC 11/19/24 21:00 11/23/24 21:15 40 MG Sodium Chloride 1,000 ml @ 75 mls/hr [id number] IV 11/19/24 07:15 11/24/24 06:34 75 MLS/HR Pantoprazole Sodium 40 mg DAILY IV 11/19/24 10:00 11/24/24 09:41 40 MG Hydralazine HCl 5 mg Q6H PRN IV 11/20/24 20:15 11/21/24 08:09 5 MG Ondansetron HCl 4 mg Q4HPRN PRN IV 11/21/24 10:45 Laboratory Results Laboratory Tests 11/24/24 07:11 Chemistry Test 11/24/24 07:11 Calcium Level 9.8 mg/dL (8.7-10.4) Urinalysis Test 11/18/24 14:22 Urine Color Colorless (Yellow) Urine Clarity Clear (Clear) Urine pH 7.0 (5.0-9.0) Urine Specific [place] 1.008 (1.001-1.035) Urine Protein Trace (Negative) H Urine Ketones Negative (Negative) Urine Blood Negative /uL (Negative) Urine Nitrite Negative (Negative) Urine Bilirubin Negative (Negative) Urine Urobilinogen Normal mg/dL (Negative) Urine Leukocyte Esterase Negative /uL (Negative) Urine RBC 1 /hpf (0 - 3) Urine Microscopic WBC 1 /HPF (0-3) Urine Squamous Epithelial Cells Few /hpf (<5) Urine Bacteria None seen /hpf (None Seen) Urine Hyaline Casts Few /lpf (0 - 2) Urine Glucose Normal mg/dL (Normal) Microbiology Microbiology Date/Time Source Procedure Growth Status 11/21/24 03:30 Nose MRSA Screen - Final Complete 11/19/24 09:49 Blood Blood Culture - Final NO GROWTH AFTER 5 DAYS OF INCUBATION. Complete 11/18/24 14:23 Sputum Gram Stain - Final Complete 11/18/24 14:23 Sputum Respiratory Culture - Final Complete Labs and/or images reviewed: Labs reviewed by me Assessment/Plan Assessment/Plan breakthrough seizure activity -history of epilepsy -schizophrenia -history of traumatic brain injury -acute hypoxic respiratory failure -hypokalemia Plan: Continuing current management. Swallow evaluation. If the patient pass then we will anticipate to start soft regular diet Continuing Keppra a 1500 mg IV b.i.d. Waiting for EEG Continuing physical therapy Replace potassium Discharge planning This medical document was created using an electronic medical record system with [employer] direct computerized dictation system. Although this document has been carefully reviewed, there may still be some phonetic and typographical errors. These areas are purely typographical due to imperfections of the software programs, and do not reflect any compromise in the patient's medical care. Plan discussed with: Patient My Orders Orders - EILEEN BLUE MD Procedure Category Date Status Time Regular Diet DIET 11/23/24 Transmitted Dinner Date of Service: Nov 24, 2024 Billing Provider: EILEEN BLUE MD Common Visit Codes: [id number] INP/OBS CARE(HIGH) EILEEN BLUE MD Nov 24, 2024 11:14
--- NOTE | 2024-11-24 23:56 | DVHPN2 ---
Progress Note - Dictate Date Seen: Nov 24, 2024 Medical Necessity Reason Pt with a Central, PICC or Fol: Yes The following are medically ne: Central Line, [place] Catheter Subjective Mr. Laws is a 34 years old right-handed gentleman with a history of traumatic brain injury, schizophrenia, he was brought to the [facility] on 11/17/2024 with a chief company of seizure activity. I have seen and examined the patient, discussed with his nurse, and sitter, he was oriented x3, but has a mood swing sometimes Urinalysis, 11/18/2024: Unremarkable UDS, 11/18/2024: Cannabinoids Plasma alcohol, 11/18/2024: <3 WBC/HB/PLT/MCV 11/18/24: 6.2/14.4/135/99.9 HCO3, 11/18/2024: 18 Anion gap, 11/18/2024: 17 BUN/CR, 11/18/2024: 8/1.41 HGB A1c, 11/18/24: 4.7 TBI/AST/ALT/AP, 11/18/2024: 0.6/44/81/48 EEG, 11/19/2024: moderately abnormal EEG Chest x-ray, 11/18/2024: No acute disease CT head, 11/18/2024: No acute intracranial abnormality vital signs Vital Sign Date Time Temp Pulse Resp B/P (MAP) Pulse Ox O2 Delivery O2 Flow Rate FiO2 11/24/24 21:00 98.1 66 18 128/84 (99) 96 98.1 11/24/24 20:00 Room Air* 0 21 Total Intake and Output 11/23/24 11/23/24 11/24/24 15:00 23:00 07:00 Intake Total 1200 ml 2410 ml 800 ml Output Total 1150 ml 1050 ml Balance 1200 ml 1260 ml -250 ml medications Current Medications Medications Dose Ordered Sig/[place] Route Start Time Stop Time Status Last Admin Dose Admin Levetiracetam 100 ml @ 400 mls/hr BID IV 11/18/24 22:00 11/24/24 21:08 400 MLS/HR Risperidone 3 mg DAILY PO 11/19/24 10:00 11/24/24 09:40 3 MG Lorazepam 1 mg Q5MINP PRN IV 11/18/24 22:00 Enoxaparin Sodium 40 mg Q24H SC 11/19/24 21:00 11/24/24 21:08 40 MG Sodium Chloride 1,000 ml @ 75 mls/hr [id number] IV 11/19/24 07:15 11/24/24 06:34 75 MLS/HR Pantoprazole Sodium 40 mg DAILY IV 11/19/24 10:00 11/24/24 09:41 40 MG Hydralazine HCl 5 mg Q6H PRN IV 11/20/24 20:15 11/21/24 08:09 5 MG Ondansetron HCl 4 mg Q4HPRN PRN IV 11/21/24 10:45 objective The patient is well-nourished and well-developed with no distress. MENTAL STATUS: Subjective CRANIAL NERVES: Pupils are equal, round and reactive. PERRL. Sensory motor examination in bilateral trigeminal distribution is normal No signs of facial weakness. SENSATION: Normal to pinprick and light touch MOTOR: Normal tone in the upper and lower extremity. Normal muscle bulk. No fasciculations. Muscle strength feels fine REFLEXES: Deep tendon reflexes are symmetrical. No pathological reflexes. CEREBELLAR/COORDINATION: No ataxia GAIT/STATION: deferred laboratory and microbiology Laboratory Tests 11/24/24 07:11 Test 11/24/24 07:11 Range/Units Serum Glucose 87 74-106 mg/dL Problem List Status epileptics Grand mal seizure Chronic traumatic brain injury Acute respiratory failure Schizophrenia Assessment/Plan Close monitoring Supportive treatment Keppra 1500 mg IV b.i.d. Ativan for seizure breakthrough DVT prophylaxis/Lovenox More recommendation per clinical course This medical document was created using an electronic medical record system with [employer] dictation system. Although this document has been carefully reviewed, there may still be some phonetic and typographical errors. These areas are purely typographical due to imperfections of the software programs, and do not reflect any compromise in the patient's medical care Prognosis poor Dietary Evaluation Review Comments: 1. Due to kcal via propofol, recommend Vital HP @ 50 ml/hr (goal). Begin at 10 ml/hr, advance by 10 ml Q4 hrs or as tolerated to goal-rate of 50 ml/hr x 24 hrs 2. When off propofol, change to Osmolite 1.2 @ 60 ml/hr + 1 pckt Prostat daily 3. Provide free water flushes of 30 ml Q6 hrs (120 ml total); adjust PRN 4. Monitor BMP/lytes and replete to WNL TF Provision: TF at goal to provide 1200 ml total volume, 1200 kcal (+465 kcal via propofol = 1665 kcal), 105 gm pro, 0 gm fiber, 1003 ml H20 (meets 100% est. kcal needs, 100% est. pro needs) Expected Outcomes/Goals: Adequate nutrition, improved hemodynamic stability. Plan discussed with: Other ANTELMO MONTANA MD Nov 24, 2024 23:56
[2024-11-25] VITALS (8 sets, daily range): BP systolic 38–140; BP diastolic 70–88; PULSE 55–65; RESP 17–18; TEMP 98.1–98.6; O2SAT 95–96
[2024-11-25] MEDS: levETIRAcetam 500 MG TAB PO SCH (09:34)
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
[2024-11-26 05:00] VITALS: BP 132/88; PULSE 55; RESP 18; TEMP 98.5; O2SAT 96
[2024-11-26 08:20] VITALS: PULSE 61
[2024-11-26 09:00] VITALS: BP 140/95; PULSE 62; RESP 16; TEMP 98.4; O2SAT 95
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
[2024-11-26 13:00] VITALS: BP 134/87; PULSE 68; RESP 16; TEMP 98.6; O2SAT 96
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
[2024-11-26] MEDS ORDERED: LEVE750T15 PO (13:08)
[2024-11-26 14:32] VITALS: BP 174/104; TEMP 36.9
--- NOTE | 2024-11-28 14:04 | ECG ---
[facility] Test Date: 2024-11-20 Test Time: 08:31:26 Pat Name: GOMEZ NEW Department: ED Room: 0220T A Gender: M Open Claims Representative: ANGELY : 1990 Requested By: RENE PLEITEZ Order Number: [id number] Reading MD: Lucien Crane Measurements Intervals [place] Rate: 39 P: 66 [place]: 194 QRS: 48 QRSD: 96 T: 54 QT: 453 QTc: 365 Interpretive Statements Sinus bradycardia Electronically Signed On 11-28-2024 15:32:19 PDT by Lucien Crane Please click the below link to view image of tracing.
== END 2024-11-26 16:15 | disposition home or self-care (01) | DRG 53 ==
LOC: EDBD 14:06 → ER 14:18 → OVERFLOW 16:54 → ICU WEST 11-21 03:23 → TELE-CENTR 11-21 19:10
PROVIDERS: ADMIT Internal Medicine; ATTEND Internal Medicine
PROC: 0BH17EZ Insertion of Endotracheal Airway into Trachea, Via Natural or Artificial Opening (ICD-10-PCS; principal; 2024-11-18)
PROC: 5A1945Z Respiratory Ventilation, 24-96 Consecutive Hours (ICD-10-PCS; 2024-11-18)
PROC: 5A1935Z Respiratory Ventilation, Less than 24 Consecutive Hours (ICD-10-PCS; 2024-11-21)
PROC: 5A0935A Assistance with Respiratory Ventilation, Less than 24 Consecutive Hours, High Flow/Velocity Cannula (ICD-10-PCS; 2024-11-21)
DX: G40.401 Other generalized epilepsy and epileptic syndromes, not intractable, with status epilepticus (principal); J96.01 Acute respiratory failure with hypoxia; N17.0 Acute kidney failure with tubular necrosis; F20.9 Schizophrenia, unspecified; E87.6 Hypokalemia; F17.210 Nicotine dependence, cigarettes, uncomplicated; Z87.820 Personal history of traumatic brain injury; Z79.899 Other long term (current) drug therapy
CPT/HCPCS: 31500; 36415; 36556; 36600; 70450; 71045; 80048; 80053; 80307; 80320; 81001; 82542; 82805; 82962; 83036; 83735; 85025; 87040; 87070; 87081; 87205; 92610; 93005; 94002; 94003; 95819; 96365; 97116; 97163; 97530; 99291; G0378; J0330; J2003; J2470; J2704

== ENCOUNTER 2025-04-27 12:36 | Emergency (ER) | payer MEDICAID ==
[~2025-04-27] VITALS: Ht 167.6 cm; Wt 65.9 kg
[~2025-04-27 12:36] MED LIST: LEVE750T15 PO; RISP3TAB44 PO
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
[2025-04-27 13:03] VITALS: PULSE 79; RESP 16; TEMP 98.5; O2SAT 95
[2025-04-27] MEDS: levETIRAcetam 1000 mg/100ml 100 ML IV ONE (13:10)
[2025-04-27] MEDS: SODIUM CHLORIDE 0.9% 1,000 ML IV ONE ×2 (13:10→14:23)
[2025-04-27 13:29] LABS: Hematocrit 37.2 % (41.0-53.0); Hemoglobin 13.5 g/dL (13.5-17.5); Mean Corpuscular Hemoglobin 35.2 pg (28.0-32.0); Mean Corpuscular Volume 97.2 fL (80.0-100.0); Nucleated Red Blood Cells % 0.0 %
[2025-04-27 13:43] LABS: Alkaline Phosphatase 51 U/L (46-116); Anion Gap 15 (5-15); BUN/Creatinine Ratio 7.3 (10.0-20.0); Blood Urea Nitrogen 9 mg/dL (9-23); Calcium 9.0 mg/dL (8.7-10.4); Carbon Dioxide 24 mmol/L (20-31); Chloride 103 mmol/L (98-107); Magnesium 1.8 mg/dL (1.6-2.6); Potassium 3.9 mmol/L (3.5-5.1); Sodium 142 mmol/L (136-145); Total Protein 7.1 g/dL (5.7-8.2)
[2025-04-27 13:44] LABS: Alanine Aminotransferase 138 U/L (7-40); Albumin 4.3 g/dL (3.2-4.8); Bilirubin, Total 0.3 mg/dL (0.2-1.0); Glucose 121 mg/dL (74-106)
[2025-04-27 13:48] LABS: Lactic Acid w/Reflex 7.2 mmol/L (0.4-2.0)
--- NOTE | 2025-04-27 14:53 | DVH ---
XY CHEST PORTABLE, HISTORY: SEIZURE COMPARISON: XY CHEST PORTABLE on DOS: 11/21/24, XY CHEST PORTABLE on DOS: 11/20/24, XY CHEST PORTABLE o n DOS: 11/19/24 XY CHEST PORTABLE on DOS: 11/21/24, XY CHEST PORTABLE on DOS: 11/20/24, XY CHEST PORTABLE on DOS: TECHNICAL DATA: 1 view of the chest was obtained. FINDINGS: Lines and tubes: None Cardiomediastinal silhouette: normal Pulmonary vasculature: normal Lung expansion: normal Lung airspace: normal Lung interstitium: normal Pleura: normal Pneumothorax: no Bones: Unremarkable Other: no IMPRESSION: No acute intrathoracic abnormality.
--- NOTE | 2025-04-27 15:02 | DVH ---
CT HEAD WITHOUT CONTRAST INDICATION: SEIZURE EXAM DATE: 04/27/2025 02:23 PM COMPARISON: CT HEAD WITHOUT CONTRAST on DOS: 11/19/24, CT HEAD WITHOUT CONTRAST on DOS: 11/18/24, CT HE AD WITHOUT CONTRAST on DOS: 06/14/23 RADIATION DOSE: CTDIvol: 55 mGy, DLP: 985 mGy*cm PROCEDURE: CT scans of the head were obtained from the vertex to the skull base. Sagittal and coronal reconstructions were provided. All CT scans at this medical facility are performed using dose modulation techniques as appropriate t o a performed exam including the following: Automated exposure control was utilized; adjustment of th e MA and/or KV according to patient size; and use of iterative reconstruction technique. FINDINGS: Stable post surgical changes from a right frontal /parietal craniectomy with metal mesh charisse dware which appears to be intact. Stable underlying frontal / parietal lobe encephalomalacia and ex vacuo dilation of the frontal horn to prior CT. There is sulcal and ventricular prominence. The bra in otherwise shows normal morphology , without intracranial hemorrhage, extra-axial fluid collection, mass effect or acute large vessel infarct.The basal cisterns are patent. The skull and visible facia l bones are intact. The paranasal sinuses, mastoid air cells and middle ear cavities are well-aerated . The soft tissues of the scalp are unremarkable. IMPRESSION: Stable post surgical changes from a right frontal /parietal craniectomy with metal mesh hardware whic h appears to be intact. Stable underlying frontal / parietal lobe encephalomalacia and ex vacuo dilation of the frontal horn to prior CT. No acute intracranial abnormality.
[2025-04-27 17:55] VITALS: BP 118/84; PULSE 72; RESP 14; O2SAT 95
== END 2025-04-27 17:56 | disposition home or self-care (01) ==
LOC: ER 12:36 → EDBD 12:36 → ER 17:56
DX: G40.909 Epilepsy, unspecified, not intractable, without status epilepticus (principal); F17.210 Nicotine dependence, cigarettes, uncomplicated; F20.9 Schizophrenia, unspecified
CPT/HCPCS: 36415; 70450; 71045; 80053; 82542; 83605; 83735; 84484; 85025; 96361; 96374; 99285; J1953; J7030